=== PATIENT | male | born 1960 | race Caucasian/White ===

== ENCOUNTER 2021-04-02 05:32 | Inpatient (IN) ==
[2021-04-02] MEDS ORDERED: SODIUM CHLORIDE 0.9% 1000ML 1,000 ML IV ONE (06:06)
[2021-04-02 06:29] LABS: Basophils # (auto) 0.02 K/uL (0-0.2); Basophils % (auto) 0.2 %; Eosinophils % (auto) 2.4 %; Hematocrit (blood only) 39.5 % (42-52); Hemoglobin 13.2 g/dL (14.0-18.0); Immature Granulocytes # (auto) 0.02 K/uL (0.00-0.02); Immature Granulocytes % (auto) 0.2 %; Lymphocytes # (auto) 1.79 K/uL (1.2-3.4); Lymphocytes % (auto) 14.3 %; Mean Corpuscular Hemoglobin 28.8 pg (25-34); Mean Corpuscular Hgb Conc 33.4 g/dL (32-36); Mean Corpuscular Volume 86.2 fL (80-100); Mean Platelet Volume 8.1 fL (7.4-10.4); Monocytes # (auto) 0.54 K/uL (0.11-0.59); Monocytes % (auto) 4.3 %; Neutrophils # (auto) 9.81 K/uL (1.4-6.5); Neutrophils % (auto) 78.6 %; Platelet Count 345 K/uL (130-400); RDW Coefficient of Variation 13.4 % (11.5-14.5); RDW Standard Deviation 42.7 fL (36.4-46.3); Red Blood Count 4.58 M/uL (4.7-6.1); White Blood Count 12.48 K/uL (4.8-10.8)
[2021-04-02 06:45] LABS: Albumin Level 3.3 gm/dl (3.4-5.0); BUN Creatinine Ratio 30.2 (10-20); Calcium 9.4 mg/dl (8.5-10.1); Creatinine Clr Calc Pharmacy 98.5 ml/min; Est GFR (African American) 108.7 ml/min; Est GFR (Non-African American) 93.8 ml/min; Magnesium 2.3 mg/dl (1.8-2.4); Potassium 4.5 mmol/L (3.5-5.1)
[2021-04-02 06:47] LABS: Albumin Globulin Ratio 0.9 (0.9-2); Bilirubin,Total 0.2 mg/dl (0.2-1); Globulin 3.6 gm/dl (2.5-4.0); Total Protein 6.9 gm/dl (6.4-8.2)
--- NOTE | 2021-04-02 06:53 | Emergency Department Note ---
History of Present Illness General Chief complaint: Rectal Bleed Stated complaint: RECTAL BLEEDING Time Seen by Provider: 04/02/21 05:51 Source: patient Mode of arrival: ambulatory Limitations: no limitations History of Present Illness Provider complaint: GI bleed Onset (ago): hour(s) Associated symptoms: + denies other symptoms Treatments prior to arrival: none This is a 60-year-old male presents emergency department complaining of GI bleed . Patient states early this morning he woke up had something to eat and drink and went to the bathroom. He states about a half an hour later when he woke up he felt he had gas and went to use the restroom and states he passed a blood clot and then had bright red blood on the toilet tissue. He states he sat for a while and then felt as though he needed to use the bathroom again after about an hour. At this point he had bright red watery diarrhea. He then sat around at home, smoked a cigarette, and contacted the advice nurse. He then had yet a third episode of bright red watery diarrhea. He denies any abdominal pain or bloating. Denies nausea, vomiting, fevers, chills. Patient states he has previously had an episode of diverticulitis. He has never had prior bleeding. Patient has not had a screening colonoscopy. Denies any family history of GI problems. No recent increased heartburn. Pt uses meloxicam daily for arthritis and uses ASA 81 mg. No anticoagulation. Pt seen during a time of high acuity and national emergency pandemic while wearing PPE. Home Medications Medication Instructions Recorded Confirmed Type aspirin 81 mg tablet,delayed 81 mg PO DAILY 02/08/20 04/02/21 History release meloxicam 15 mg tablet 7.5 - 15 mg PO DAILY 02/08/20 04/02/21 History nortriptyline 10 mg capsule 10 mg PO HS 04/02/21 04/02/21 History omeprazole 20 mg capsule,delayed 20 mg PO DAILY PRN 04/02/21 04/02/21 History release Allergies Allergy/AdvReac Type Severity Reaction Status Date / Time No Known Allergies Allergy Unverified 04/02/21 07:38 Past Med/Surg History Medical History KAILASH (generalized anxiety disorder) Generalized osteoarthritis Hepatitis B carrier No pertinent past medical history Tobacco use disorder Surgical History Hx of cataract surgery Hx of inguinal hernia surgery Family History Grandfather Lung cancer Grandmother (Maternal) Diabetes Social History (Updated 04/02/21 @ 10:57 by Madina Wooten PA-C) Smoking Status: Current every day smoker Tobacco Type: Cigarettes and Pipe packs per day: 1.5; Years Smoked: 5; Cigarettes Per Day: 30; Second Hand Exposure: No; Do You Dip or Chew Tobacco: No; Tobacco Cessation Education Requested by Patient: No Hx Alcohol Use: Yes Alcohol type: hard liquor Hx Substance Use: Yes Prescribed Medications: Marijuana Non-Prescribed Medications Comment: uses marijuana to sleep 2-3 nights a week Last Used Substance: Days (ago) Last Used Substance Other:: 1 Preferred Language: Turkish Communication Ability: Effective Parcel Carrier Required: Yes Beliefs That Will Affect Care: None Current Living Situation: Significant Other Other Information That Helps Us Care for You: No Feels Safe at Home: Yes Safety Concerns: Feels Safe At This Time Assistive Devices: None Review of Systems A total of 10 systems reviewed and were otherwise negative All systems reviewed & are unremarkable except as noted in HPI & below Physical Exam Vital Signs Vital Signs - 24 hr 04/02/21 05:41 04/02/21 08:00 Temperature 36.7 C Temperature Source Temporal Artery Scan Pulse Rate 84 Pulse Rate [Right Finger] 74 Respiratory Rate 20 18 Respiratory Effort / Characteristics Non-Labored Respiratory Depth Normal Respiratory Pattern Regular Blood Pressure 134/91 Blood Pressure [Right Arm] 124/70 Blood Pressure Mean 105 Blood Pressure Mean [Right Arm] 88 Pulse Oximetry 97 97 Oxygen Delivery Method Room Air Room Air Sepsis Recent Fever Within 48 Hours No Sepsis New/Unexplained Change in Mental Status N/A Sepsis Action Taken by Nursing No Action Required GENERAL: alert, well appearing, well nourished, no distress, non-toxic EYE EXAM: normal conjunctiva, PERRL and EOM's grossly intact OROPHARYNX: no exudate, no erythema, lips, buccal mucosa, and tongue normal and mucous membranes are moist NECK: supple, no nuchal rigidity, no adenopathy, non-tender LUNGS: Clear to auscultation. Normal chest wall mechanics, no w/r/r HEART: no murmurs, S1 normal and S2 normal ABDOMEN: abdomen soft, non-tender, normo-active bowel sounds, no masses, no rebound or guarding. BACK: Back is symmetrical on inspection and there is no deformity, no midline tenderness, no CVA tenderness. SKIN: no rashes and no bruising UPPER EXTREMITIES: upper extremities are grossly normal. FROM, nml pulses b/l. LOWER EXTREMITIES: No pitting edema. FROM, nml pulses b/l. NEURO EXAM: Normal sensorium, cranial nerves II-XII grossly intact, normal speech, no gross weakness of arms, no gross weakness of legs. Gross sensation intact. Course Course 15: Pt with recurrent bloody diarrhea here. VS stable. I visualized the bowel movement which was grossly bloody with some clots. 0830: Discussed with Dr. Hernandez. 0848: DIscussed with Dr. Olvera. Administered Medications Sodium Chloride (Nss 1000ml) 1,000 mls @ 125 mls/hr IV .Q8H FIDEL Stop: 05/02/21 14:59 Last Admin: 04/02/21 22:11 Dose: 125 mls/hr Documented by: [id number] Infusion: 04/02/21 22:11 Dose: 125 mls/hr Documented by: [id number] Admin: 04/02/21 15:00 Dose: 125 mls/hr Documented by: [id number] Ciprofloxacin (Cipro / D5w) 400 mg in 200 mls @ 100 mls/hr IV Q12H FIDEL; Protocol Stop: 04/12/21 19:59 Last Infusion: 04/02/21 21:38 Dose: 0 mls/hr Documented by: [id number] Admin: 04/02/21 19:37 Dose: 100 mls/hr Documented by: [id number] Metronidazole (Flagyl) 500 mg in 100 mls @ 100 mls/hr IV Q8H FIDEL; Protocol Stop: 04/12/21 16:29 Last Infusion: 04/02/21 17:21 Dose: 0 mls/hr Documented by: [id number] Admin: 04/02/21 16:09 Dose: 100 mls/hr Documented by: [id number] Nortriptyline HCl (Nortriptyline Hcl 10 Mg Cap) 10 mg PO HS FIDEL Stop: 05/02/21 20:59 Last Admin: 04/02/21 20:16 Dose: 10 mg Documented by: [id number] Discontinued Medications Sodium Chloride (Nss 1000ml) 1,000 mls @ 999 mls/hr IV .Q1H1M ONE Stop: 04/02/21 07:06 Last Infusion: 04/02/21 07:31 Dose: 0 mls/hr Documented by: [id number] Admin: 04/02/21 06:30 Dose: 999 mls/hr Documented by: [id number] Sodium Chloride (Nss 1000ml) 1,000 mls @ 125 mls/hr IV .Q8H FIDEL Stop: 05/02/21 08:29 Last Infusion: 04/02/21 14:31 Dose: 0 mls/hr Documented by: [id number] Admin: 04/02/21 09:00 Dose: 125 mls/hr Documented by: [id number] Ciprofloxacin (Cipro / D5w) 400 mg in 200 mls @ 100 mls/hr IV NOW STA; Protocol Stop: 04/02/21 10:35 Last Infusion: 04/02/21 11:15 Dose: 0 mls/hr Documented by: [id number] Admin: 04/02/21 09:00 Dose: 100 mls/hr Documented by: [id number] Metronidazole (Flagyl) 500 mg in 100 mls @ 100 mls/hr IV NOW STA Stop: 04/02/21 09:35 Last Infusion: 04/02/21 10:15 Dose: 0 mls/hr Documented by: [id number] Admin: 04/02/21 09:00 Dose: 100 mls/hr Documented by: [id number] Medical Decision Making Differential Diagnosis Differential diagnosis includes etiologies such as diverticulosis, AVM, coagulopathy, colitis, inflammatory bowel disease, malignancy, Tanesha-Moran tear, esophagitis, peptic ulcer disease, variceal bleed, gastritis, epistaxis, fissure, hemorrhoids, as well as others were entertained. Medical Records Attestation: I reviewed the patient's medical records. Home Medications Current Medication List: was personally reviewed by me Laboratory Data Attestation: I reviewed the patient's lab results. Result diagrams: 04/02/21 17:58 04/02/21 06:14 Lab Results 04/02/21 04/02/21 04/02/21 Range/Units 06:14 06:14 06:14 WBC 12.48 H (4.8-10.8) K/uL RBC 4.58 L (4.7-6.1) M/uL Hgb 13.2 L (14.0-18.0) g/dL Hct 39.5 L (42-52) % MCV 86.2 (80-100) fL MCH 28.8 (25-34) pg MCHC 33.4 (32-36) g/dL RDW Std Deviation 42.7 (36.4-46.3) fL RDW Coeff of Reji 13.4 (11.5-14.5) % Plt Count 345 (130-400) K/uL MPV 8.1 (7.4-10.4) fL Immature Gran % (Auto) 0.2 % Neut % (Auto) 78.6 % Lymph % (Auto) 14.3 % [place] % (Auto) 4.3 % Eos % (Auto) 2.4 % Baso % (Auto) 0.2 % Neut # (Auto) 9.81 H (1.4-6.5) K/uL Lymph # (Auto) 1.79 (1.2-3.4) K/uL [place] # (Auto) 0.54 (0.11-0.59) K/uL Eos # (Auto) 0.30 (0-0.5) K/uL Baso # (Auto) 0.02 (0-0.2) K/uL Immature Gran # (Auto) 0.02 (0.00-0.02) K/uL Sodium 140 (136-145) mmol/L Potassium 4.5 (3.5-5.1) mmol/L Chloride 111 H (98-107) mmol/L Carbon Dioxide 25 (21-32) mmol/L Anion Gap 4.0 (3-11) BUN 26 H (7-18) mg/dl Creatinine 0.87 (0.6-1.4) mg/dl Est Cr Clr Drug Dosing 98.5 ml/min Est GFR ( Amer) 108.7 ml/min Est GFR (Non-Af Amer) 93.8 ml/min BUN/Creatinine Ratio 30.2 H (10-20) Glucose 148 H (70-99) mg/dl Lactate 1.2 (0.4-2.0) mmol/L Calcium 9.4 (8.5-10.1) mg/dl Magnesium 2.3 (1.8-2.4) mg/dl Total Bilirubin 0.2 (0.2-1) mg/dl AST 20 (15-37) U/L ALT 23 (12-78) U/L Alkaline Phosphatase 113 (45-117) U/L Total Protein 6.9 (6.4-8.2) gm/dl Albumin 3.3 L (3.4-5.0) gm/dl Globulin 3.6 (2.5-4.0) gm/dl Albumin/Globulin Ratio 0.9 (0.9-2) Urine Color Urine Appearance (Clear) Urine pH (4.5-7.5) Ur Specific [place] (1.000-1.030) Urine Protein (Negative) Urine Glucose (UA) (Negative) Urine Ketones (Negative) Urine Blood (Negative) Urine Nitrite (Negative) Urine Bilirubin (Negative) Urine Urobilinogen (Negative) Ur Leukocyte Esterase (Negative) Lyme Disease IgG Ab (Negative) Lyme Disease IgM Ab (Negative) COVID-19 Eval Order SARS-CoV-2 (PCR) (Negative) Blood Type Antibody Screen Crossmatch 04/02/21 04/02/21 04/02/21 Range/Units 06:14 08:37 08:58 WBC (4.8-10.8) K/uL RBC (4.7-6.1) M/uL Hgb (14.0-18.0) g/dL Hct (42-52) % MCV (80-100) fL MCH (25-34) pg MCHC (32-36) g/dL RDW Std Deviation (36.4-46.3) fL RDW Coeff of Reji (11.5-14.5) % Plt Count (130-400) K/uL MPV (7.4-10.4) fL Immature Gran % (Auto) % Neut % (Auto) % Lymph % (Auto) % [place] % (Auto) % Eos % (Auto) % Baso % (Auto) % Neut # (Auto) (1.4-6.5) K/uL Lymph # (Auto) (1.2-3.4) K/uL [place] # (Auto) (0.11-0.59) K/uL Eos # (Auto) (0-0.5) K/uL Baso # (Auto) (0-0.2) K/uL Immature Gran # (Auto) (0.00-0.02) K/uL Sodium (136-145) mmol/L Potassium (3.5-5.1) mmol/L Chloride (98-107) mmol/L Carbon Dioxide (21-32) mmol/L Anion Gap (3-11) BUN (7-18) mg/dl Creatinine (0.6-1.4) mg/dl Est Cr Clr Drug Dosing ml/min Est GFR ( Amer) ml/min Est GFR (Non-Af Amer) ml/min BUN/Creatinine Ratio (10-20) Glucose (70-99) mg/dl Lactate (0.4-2.0) mmol/L Calcium (8.5-10.1) mg/dl Magnesium (1.8-2.4) mg/dl Total Bilirubin (0.2-1) mg/dl AST (15-37) U/L ALT (12-78) U/L Alkaline Phosphatase (45-117) U/L Total Protein (6.4-8.2) gm/dl Albumin (3.4-5.0) gm/dl Globulin (2.5-4.0) gm/dl Albumin/Globulin Ratio (0.9-2) Urine Color Yellow Urine Appearance Clear (Clear) Urine pH 7.0 (4.5-7.5) Ur Specific [place] > 1.045 H (1.000-1.030) Urine Protein Negative (Negative) Urine Glucose (UA) Negative (Negative) Urine Ketones Negative (Negative) Urine Blood Negative (Negative) Urine Nitrite Negative (Negative) Urine Bilirubin Negative (Negative) Urine Urobilinogen Negative (Negative) Ur Leukocyte Esterase Negative (Negative) Lyme Disease IgG Ab Negative (Negative) Lyme Disease IgM Ab Negative (Negative) COVID-19 Eval Order SARS-CoV-2 (PCR) (Negative) Blood Type O Positive Antibody Screen NEGATIVE Crossmatch See Detail 04/02/21 04/02/21 Range/Units 09:20 09:20 WBC (4.8-10.8) K/uL RBC (4.7-6.1) M/uL Hgb (14.0-18.0) g/dL Hct (42-52) % MCV (80-100) fL MCH (25-34) pg MCHC (32-36) g/dL RDW Std Deviation (36.4-46.3) fL RDW Coeff of Reji (11.5-14.5) % Plt Count (130-400) K/uL MPV (7.4-10.4) fL Immature Gran % (Auto) % Neut % (Auto) % Lymph % (Auto) % [place] % (Auto) % Eos % (Auto) % Baso % (Auto) % Neut # (Auto) (1.4-6.5) K/uL Lymph # (Auto) (1.2-3.4) K/uL [place] # (Auto) (0.11-0.59) K/uL Eos # (Auto) (0-0.5) K/uL Baso # (Auto) (0-0.2) K/uL Immature Gran # (Auto) (0.00-0.02) K/uL Sodium (136-145) mmol/L Potassium (3.5-5.1) mmol/L Chloride (98-107) mmol/L Carbon Dioxide (21-32) mmol/L Anion Gap (3-11) BUN (7-18) mg/dl Creatinine (0.6-1.4) mg/dl Est Cr Clr Drug Dosing ml/min Est GFR ( Amer) ml/min Est GFR (Non-Af Amer) ml/min BUN/Creatinine Ratio (10-20) Glucose (70-99) mg/dl Lactate (0.4-2.0) mmol/L Calcium (8.5-10.1) mg/dl Magnesium (1.8-2.4) mg/dl Total Bilirubin (0.2-1) mg/dl AST (15-37) U/L ALT (12-78) U/L Alkaline Phosphatase (45-117) U/L Total Protein (6.4-8.2) gm/dl Albumin (3.4-5.0) gm/dl Globulin (2.5-4.0) gm/dl Albumin/Globulin Ratio (0.9-2) Urine Color Urine Appearance (Clear) Urine pH (4.5-7.5) Ur Specific [place] (1.000-1.030) Urine Protein (Negative) Urine Glucose (UA) (Negative) Urine Ketones (Negative) Urine Blood (Negative) Urine Nitrite (Negative) Urine Bilirubin (Negative) Urine Urobilinogen (Negative) Ur Leukocyte Esterase (Negative) Lyme Disease IgG Ab (Negative) Lyme Disease IgM Ab (Negative) COVID-19 Eval Order Covid19 at [facility] SARS-CoV-2 (PCR) NEGATIVE (Negative) Blood Type Antibody Screen Crossmatch Imaging Data Radiologist's Impression: Abdomen/Pelvis CT 04/02/21 06:[address] WITH IV CONTRAST CT DOSE: 518.52 mGy.cm HISTORY: Acute GI bleed gi bleed TECHNIQUE: Multiaxial CT images of the abdomen and pelvis were performed foll owing the IV administration of 94 cc of Optiray, A dose lowering technique was utilized adhering to the principles of ALARA. COMPARISON STUDY: CT abdomen and pelvis 02/08/2020 FINDINGS: The imaged inferior cardiac chambers are unremarkable. Mild bibasilar atelectasis/fibrosis. No pneumatosis or pneumoperitoneum. The spleen, pancreas, adrenal glands, gallbladder and liver appear unremarkable. Patency of the hepatic and portal veins. Unremarkable right kidney. Unchanged appearance of the inferior pole cortex of the left kidney which may reflect a small area of cortical scarring. No hydronephrosis. Urinary bladder wall thickening with partial distention. Prostamegaly. Probable small fat filled left inguinal hernia. Atherosclerosis of the aorta without aneurysm. No adenopathy. Left-sided IVC. Tiny hiatal hernia. No bowel obstruction. Colonic diverticulosis. Mild wall thickening of the mid to distal descending colon and proximal sigmoid with mild pericolonic stranding. There is ill-defined intraluminal hyperdensity within the mid aspect of the descending colon on image 210 series 3 extending for a length of approximately 2.5 cm. Normal appendix. Postoperative changes of the abdominal wall with surgical clips. Tiny fat filled periumbilical hernia. Unremarkable soft tissues. No acute fracture. IMPRESSION: 1. Mild wall thickening of the mid to distal descending and proximal sigmoid colon with pericolonic stranding is suggestive of a nonspecific acute colitis. Acute diverticulitis considered less likely. 2. Ill-defined intraluminal hyperdensity extending for a length of 2.5 cm in the mid descending colon is suggestive of an acute gastrointestinal hemorrhage with active extravasation. GI consultation recommended. 3. Additional findings as above. ACT 112: Negative or not required by law. The above report was generated using voice recognition software. It may contain grammatical, syntax or spelling errors. Electronically signed by: Adarsh Lawrence M.D. 04/02/2021 8:17 AM ECG Data Attestation: I personally reviewed and interpreted this ECG as follows: Indication: + other Rate (beats per minute): 74 Rhythm: + normal sinus ECG Intervals/blocks: + Normal QRS and + Normal QT ECG [place]: + Normal ECG ST segments: + Normal ST segments MDM Narrative This is a 60-year-old man who presents due to concern for GI bleed that began overnight tonight. Patient was afebrile and hemodynamically stable. Patient denied any accompanying abdominal pain. Patient denies any prior GI history in him or family members. Of note patient has not had any screening colonoscopy, is a smoker, does use low-dose aspirin daily as well as additional meloxicam for arthritis pain. Patient denies any recent GERD, nausea, or melena. Patient stated bleeding tonight had been bright red, he did have 2 episodes here which I did visualize myself at bedside which were grossly bloody. Patient otherwise continued to be well-appearing. I do not suspect brisk upper GI bleed at this time. Case discussed with GI on-call after CT of the abdomen pelvis showed colitis as well as active extravasation. Given his stability, GI was comfortable with the patient being started on IV antibiotics here and close monitoring. Type and screen was added in addition of the Covid swab. Case discussed with Dr. Jean, [facility] hospitalist. An order was placed for continuous cardiac monitoring. The monitor shows a rate of _70_ with _normal sinus_ rhythm. Impression & Plan Acute GI bleeding, Acute colitis, Tobacco use disorder Discharge Plan Visit Data Chief Complaint: Rectal Bleed Stated Complaint: RECTAL BLEEDING ED Provider: Porsche Foley Discharge Problem: Acute GI bleeding, Acute colitis, Tobacco use disorder Patient Disposition: Admitted As Inpatient Discharge Instructions Interventions: ED Discharge Assessment Last Done: 04/02/21 13:37
[2021-04-02 07:25] LABS: Lyme Ab IgG w/WB Rflx Negative (Negative); Lyme Ab IgM w/WB Rflx Negative (Negative)
--- NOTE | 2021-04-02 08:18 | CT Scan Report ---
ABDOMEN AND PELVIS CT WITH IV CONTRAST CT DOSE: 518.52 mGy.cm HISTORY: Acute GI bleed gi bleed TECHNIQUE: Multiaxial CT images of the abdomen and pelvis were performed following the IV administrat ion of 94 cc of Optiray, A dose lowering technique was utilized adhering to the principles of ALARA. COMPARISON STUDY: CT abdomen and pelvis 02/08/2020 FINDINGS: The imaged inferior cardiac chambers are unremarkable. Mild bibasilar atelectasis/fibrosis. No pneumatosis or pneumoperitoneum. The spleen, pancreas, adrenal glands, gallbladder and liver appe ar unremarkable. Patency of the hepatic and portal veins. Unremarkable right kidney. Unchanged appear ance of the inferior pole cortex of the left kidney which may reflect a small area of cortical scarri ng. No hydronephrosis. Urinary bladder wall thickening with partial distention. Prostamegaly. Probabl e small fat filled left inguinal hernia. Atherosclerosis of the aorta without aneurysm. No adenopathy . Left-sided IVC. Tiny hiatal hernia. No bowel obstruction. Colonic diverticulosis. Mild wall thickening of the mid to distal descending colon and proximal sigmoid with mild pericolonic stranding. There is ill-defined in traluminal hyperdensity within the mid aspect of the descending colon on image 210 series 3 extending for a length of approximately 2.5 cm. Normal appendix. Postoperative changes of the abdominal wall w ith surgical clips. Tiny fat filled periumbilical hernia. Unremarkable soft tissues. No acute fractur e. IMPRESSION: 1. Mild wall thickening of the mid to distal descending and proximal sigmoid colon with pericolonic s tranding is suggestive of a nonspecific acute colitis. Acute diverticulitis considered less likely. 2. Ill-defined intraluminal hyperdensity extending for a length of 2.5 cm in the mid descending colon is suggestive of an acute gastrointestinal hemorrhage with active extravasation. GI consultation rec ommended. 3. Additional findings as above. ACT 112: Negative or not required by law. The above report was generated using voice recognition software. It may contain grammatical, syntax o r spelling errors. Electronically signed by: Adarsh Lawrence M.D. 04/02/2021 8:17 AM
[2021-04-02] MEDS ORDERED: SODIUM CHLORIDE 0.9% 1000ML 1,000 ML IV SCH (08:30)
[2021-04-02] MEDS ORDERED: metroNIDAZOLE 500 MG/100 ML BAG IV STA (08:36)
[2021-04-02] MEDS ORDERED: CIPROFLOXACIN / D5W 400 MG/200 ML BAG IV STA (08:36)
[2021-04-02 08:54] LABS: Appearance Urine Clear (Clear); Bilirubin Urine Negative (Negative); Blood Urine Negative (Negative); Color Urine Yellow; Glucose Urine UA Negative (Negative); Ketones Urine Negative (Negative); Leukocyte Esterase Urine Negative (Negative); Nitrite Urine Negative (Negative); Protein Urine Negative (Negative); Specific Gravity Urine > 1.045 (1.000-1.030); Urobilinogen Urine Negative (Negative)
--- NOTE | 2021-04-02 10:17 | History & Physical Report ---
Date of Service April 02, 2021 Assessment & Plan (1) Acute colitis: (2) Gastrointestinal bleeding, lower: (3) Anemia: (4) KAILASH (generalized anxiety disorder): (5) Generalized osteoarthritis: (6) Tobacco use disorder: Plan: This is a 60-year-old male who has significant past medical history of hepatitis B carrier, GERD, generalized arthritis, tobacco abuse, KAILASH, marijuana use who presents to ED secondary to bright red blood per rectum x7 episodes. CT a/p: IMPRESSION:1. Mild wall thickening of the mid to distal descending and proximal sigmoid colon with pericolonic stranding is suggestive of a nonspecific acute colitis. Acute diverticulitis considered less likely. 2. Ill-defined intraluminal hyperdensity extending for a length of 2.5 cm in the mid descending colon is suggestive of an acute gastrointestinal hemorrhage with active extravasation. GI consultation recommended. Hgb 13.2, decreased from 14.5 1 year ago Hemodynamically stable Acute colitis Gastrointestinal bleeding, lower Admit to med telemetry IV antibiotics Cipro and Flagyl Consult GI clear liquid diet for now H&H every 6 hours Type and cross with 1 unit PRBC on hold IVF 125 cc/h no prior hx of colitis (hx of diverticulitis), no hx of c-scope HOLD ASA for now - he is not taking it for CAD, PVD or CVA just preventative Anemia hgb 13.2, acute blood loss monitor q6h Tobacco/Marijuana Use disorder educated on nicotine patch currently wants to hold off will ask if needed KAILASH continue nortriptyline at HS DVT ppx: SCD/TEDS Dispo: med tele PCP: Nona FULL CODE Pt was seen and examined in collaboration with Dr. Olvera, please see addendum History of Present Illness Chief Complaint: Bright red blood per rectum x7 episodes. Primary Care Provider: Darion Castellano MD This is a 60-year-old male who has significant past medical history of hepatitis B carrier, GERD, generalized arthritis, tobacco abuse, KAILASH, marijuana use who presents to ED secondary to bright red blood per rectum x7 episodes. He states he woke up around 1:45 AM with the urge to move his bowels. He passed a large amount of melena and some fecal material. Since early this morning he has now passed 7 large bright red blood clots. Currently there is no fecal material mixed in. His first episode in ED was caught in a hat interview approximately 200 cc of melena. He was in his normal state of health up until early this morning. He denies any nausea, vomiting, abdominal pain, change in appetite, fever, chills, sweats, lightheadedness, dizziness, chest pain, shortness of breath, dysuria, increased urgency or frequency with urination. He has never had anything like this in the past.Of significance he was seen in ED on 01/2020 which did reveal acute diverticulitis. He was treated with appropriate biotics and symptoms resolved. He was encouraged to follow-up with outpatient colonoscopy which he did not receive. He has never had a colonoscopy in the past. He does take a baby aspirin daily and approximately 5 days a week takes meloxicam. He is a contractor. He does smoke marijuana occasionally around 8 PM in the evenings to help him sleep. He does not use any alcohol. In ED patient remained hemodynamically stable. His hemoglobin was stable at 13.2; however, this is decreased from 14.5 approximately [address] scan abdomen pelvis reveals acute colitis, diverticulitis less likely, 2.5 cm mid descending colon acute gastrointestinal hemorrhage with acute extravasation. ED provider did speak with gastroenterology on-call who recommended initiation of IV antibiotics. He was started on IV Cipro Flagyl as well as IV fluid. Allergies Allergy/AdvReac Type Severity Reaction Status Date / Time No Known Allergies Allergy Unverified 04/02/21 07:38 Home Medications Medication Instructions Recorded Confirmed Type nortriptyline 10 mg capsule 10 mg PO HS 04/02/21 04/02/21 History omeprazole 20 mg capsule,delayed 20 mg PO DAILY PRN 04/02/21 04/02/21 History release acetaminophen 325 mg tablet 650 mg PO Q4H PRN #30 tab 04/04/21 Rx Past Med/Surg History Medical History KAILASH (generalized anxiety disorder) Generalized osteoarthritis Hepatitis B carrier No pertinent past medical history Tobacco use disorder Surgical History Hx of cataract surgery Hx of inguinal hernia surgery Family History Grandfather Lung cancer Grandmother (Maternal) Diabetes Social History (Updated 04/02/21 @ 10:57 by Madina Wooten PA-C) Smoking Status: Current every day smoker Tobacco Type: Cigarettes and Pipe packs per day: 1.5; Years Smoked: 5; Cigarettes Per Day: 30; Second Hand Exposure: No; Do You Dip or Chew Tobacco: No; Tobacco Cessation Education Requested by Patient: No Hx Alcohol Use: Yes Alcohol type: hard liquor Hx Substance Use: Yes Prescribed Medications: Marijuana Non-Prescribed Medications Comment: uses marijuana to sleep 2-3 nights a week Last Used Substance: Days (ago) Last Used Substance Other:: 1 Preferred Language: Bengali Communication Ability: Effective Trim Die Maker Required: Yes Beliefs That Will Affect Care: None Current Living Situation: Significant Other Other Information That Helps Us Care for You: No Feels Safe at Home: Yes Safety Concerns: Feels Safe At This Time Assistive Devices: None Review of Systems Review of Systems: All systems reviewed & are unremarkable except as noted in HPI & below Physical Exam Physical Exam: Constitutional: WD/WN, vitals as above, NAD, sitting up in bed, pleasant, conversing easily Head: Normocephalic, Atraumatic Eyes: PERRL, conjunctivae normal, anicteric sclerae ENMT: external ear and nose normal, oropharynx normal Neck: trachea midline, no thyromegaly normal visual inspection Respiratory: normal respiratory effort, lungs clear to auscultation, no wheeze, rales, rhonchi. Normal insp/exp effort, no accessory muscle use Cardiovascular: RRR, no murmur, no edema Vessels: no JVD or carotid bruit Chest: normal inspection of chest Abdomen: normal bowel sounds, soft, nontender, no hepatosplenomegaly Musculoskeletal: no cyanosis or clubbing, extremities motor strength 5/5 Skin: no rashes, warm and dry normal turgor Neurologic: PERRL, EOMI, accommodation nl, no face palsy, no dysarthria CN's II-XI intact bilaterally and moves all extremities Psychiatric: A+Ox3, euthymic affect Lymphatic: no cervical or axillary lymphadenopathy : deferred Results & Data Results & Data ([facility]) Vital Signs (Past 12 Hours) Vital Signs Temp Pulse Pulse Resp BP BP Pulse Ox 04/02/21 08:00 74 18 124/70 97 04/02/21 05:41 36.7 C 84 20 134/91 97 Diagnostic Findings Abdomen/Pelvis CT 04/02/21 06:[address] WITH IV CONTRAST CT DOSE: 518.52 mGy.cm HISTORY: Acute GI bleed gi bleed TECHNIQUE: Multiaxial CT images of the abdomen and pelvis were performed following the IV administration of 94 cc of Optiray, A dose lowering technique was utilized adhering to the principles of ALARA. COMPARISON STUDY: CT abdomen and pelvis 02/08/2020 FINDINGS: The imaged inferior cardiac chambers are unremarkable. Mild bibasilar atelectasis/fibrosis. No pneumatosis or pneumoperitoneum. The spleen, pancreas, adrenal glands, gallbladder and liver appear unremarkable. Patency of the hepatic and portal veins. Unremarkable right kidney. Unchanged appearance of the inferior pole cortex of the left kidney which may reflect a small area of cortical scarring. No hydronephrosis. Urinary bladder wall thickening with partial distention. Prostamegaly. Probable small fat filled left inguinal hernia. Atherosclerosis of the aorta without aneurysm. No adenopathy. Left-sided IVC. Tiny hiatal hernia. No bowel obstruction. Colonic diverticulosis. Mild wall thickening of the mid to distal descending colon and proximal sigmoid with mild pericolonic stranding. There is ill-defined intraluminal hyperdensity within the mid aspect of the descending colon on image 210 series 3 extending for a length of approximately 2.5 cm. Normal appendix. Postoperative changes of the abdominal wall with surgical clips. Tiny fat filled periumbilical hernia. Unremarkable soft tissues. No acute fracture. IMPRESSION: 1. Mild wall thickening of the mid to distal descending and proximal sigmoid colon with pericolonic stranding is suggestive of a nonspecific acute colitis. Acute diverticulitis considered less likely. 2. Ill-defined intraluminal hyperdensity extending for a length of 2.5 cm in the mid descending colon is suggestive of an acute gastrointestinal hemorrhage with active extravasation. GI consultation recommended. 3. Additional findings as above. ACT 112: Negative or not required by law. The above report was generated using voice recognition software. It may contain grammatical, syntax or spelling errors. Electronically signed by: Adarsh Lawrence M.D. 04/02/2021 8:17 AM Medications Administered Medication List Sodium Chloride (Nss 1000ml) 1,000 mls @ 125 mls/hr IV .Q8H FIDEL Stop: 05/02/21 08:29 Last Admin: 04/02/21 09:00 Dose: 125 mls/hr Documented by: [id number] Discontinued Medications Sodium Chloride (Nss 1000ml) 1,000 mls @ 999 mls/hr IV .Q1H1M ONE Stop: 04/02/21 07:06 Last Infusion: 04/02/21 07:31 Dose: 0 mls/hr Documented by: [id number] Admin: 04/02/21 06:30 Dose: 999 mls/hr Documented by: [id number] Ciprofloxacin (Cipro / D5w) 400 mg in 200 mls @ 100 mls/hr IV NOW STA; Protocol Stop: 04/02/21 10:35 Last Admin: 04/02/21 09:00 Dose: 100 mls/hr Documented by: [id number] Metronidazole (Flagyl) 500 mg in 100 mls @ 100 mls/hr IV NOW STA Stop: 04/02/21 09:35 Last Infusion: 04/02/21 10:15 Dose: 0 mls/hr Documented by: [id number] Admin: 04/02/21 09:00 Dose: 100 mls/hr Documented by: [id number] ECG Rate (beats per minute): 74 Rhythm: normal sinus Additional Comments: inferior infarct present COVID-19 Results Results COVID-19 Adm Lab Results: RBC 4.21 M/uL (4.7-6.1) L 04/04/21 WBC 9.79 K/uL (4.8-10.8) 04/04/21 Hgb 11.2 g/dL (14.0-18.0) L 04/04/21 Hct 33.6 % (42-52) L 04/04/21 Plt Count 347 K/uL (130-400) 04/04/21 Neutrophils (%) (Auto) 78.6 % 04/02/21 Lymphocytes (%) (Auto) 14.3 % 04/02/21 Monocytes # (Auto) 0.54 K/uL (0.11-0.59) 04/02/21 Eosinophils # (Auto) 0.30 K/uL (0-0.5) 04/02/21 Immature Granulocyte % (Auto) 0.2 % 04/02/21 Neutrophils # (Auto) 9.81 K/uL (1.4-6.5) H 04/02/21 Lymphocytes # (Auto) 1.79 K/uL (1.2-3.4) 04/02/21 Monocytes # (Auto) 0.54 K/uL (0.11-0.59) 04/02/21 Eosinophils # (Auto) 0.30 K/uL (0-0.5) 04/02/21 Basophils # (Auto) 0.02 K/uL (0-0.2) 04/02/21 Immature Granulocyte # (Auto) 0.02 K/uL (0.00-0.02) 04/02/21 Na 139 mmol/L (136-145) 04/04/21 K 3.9 mmol/L (3.5-5.1) 04/04/21 Cl 108 mmol/L (98-107) H 04/04/21 CO2 26 mmol/L (21-32) 04/04/21 Anion Gap 4.0 (3-11) 04/04/21 BUN 8 mg/dl (7-18) 04/04/21 Creatinine 0.84 mg/dl (0.6-1.4) 04/04/21 BUN/Creatinine Ratio 9.5 (10-20) L 04/04/21 Glucose Level 105 mg/dl (70-99) H 04/04/21 Ca 9.1 mg/dl (8.5-10.1) 04/04/21 Total Bilirubin 0.2 mg/dl (0.2-1) 04/02/21 AST/SGOT 20 U/L (15-37) 04/02/21 ALT/SGPT 23 U/L (12-78) 04/02/21 Alkaline Phosphatase 113 U/L (45-117) 04/02/21 Total Protein 6.9 gm/dl (6.4-8.2) 04/02/21 Albumin 3.3 gm/dl (3.4-5.0) L 04/02/21 Globulin 3.6 gm/dl (2.5-4.0) 04/02/21 Albumin/Globulin Ratio 0.9 (0.9-2) 04/02/21 PTT 26.5 Seconds (21.0-31.0) 04/02/21 INR 1.0 (0.9-1.1) 04/02/21 COVID-19 PCR NEGATIVE (Negative) 04/02/21 Code Status & VTE Plan Code Status Full Code Supervising Physician Co-Signing Physician Notes Pt was seen and examined. Agreed with Madina MANCUSO exam, assessment and plan. 60-year-old male who has significant past medical history of hepatitis B carrier, GERD, generalized arthritis, tobacco abuse, KAILASH, marijuana use who presents to ED secondary to bright red blood per rectum x7 episodes. Pt said that this morning he passed a large amount of melena and some fecal material. He said that he probably had about 7 episodes of diarrhea. Denies any nausea, vomit ing, abdominal pain, change in appetite, fever, chills, sweats, lightheadedness, dizziness, chest pain, shortness of breath, dysuria, increased urgency or frequency with urination. CT abdomen in the ER showed CT scan abdomen pelvis reveals acute colitis, diverticulitis less likely, 2.5 cm mid descending colon acute gastrointestinal hemorrhage with acute extravasation. Hgb on admission 13.2, decreased from 14.5 1 year ago. ED provider did speak with gastroenterology on-call who recommended initiation of IV antibiotics. He was started on IV Cipro Flagyl as well as IV fluid. Will monitor H/H. Continue to hold aspirin and avoid any other Nsaid for now. Will start on clear liquid diet and NPO after midnight. Continue monitor closely. MD Wade
--- NOTE | 2021-04-02 11:58 | Electrocardiogram Report ---
Test Reason : Blood Pressure : / mmHG Vent. Rate : 074 BPM Atrial Rate : 074 BPM P-R Int : 154 ms QRS Dur : 086 ms QT Int : 356 ms P-R-T Axes : 035 -15 015 degrees QTc Int : 395 ms Normal sinus rhythm Normal ECG When compared with ECG of 08-FEB-2020 19:58, No significant change Confirmed by Darion Dias ([id number]) on 04/02/2021 11:58:46 AM Referred By: REFERRED SELF Confirmed By:Darion Dias
[2021-04-02 12:17] LABS: Partial Thromboplastin Time 26.5 Seconds (21.0-31.0); Prothrombin Time 10.2 Seconds (9.0-12.0)
[2021-04-02] MEDS ORDERED: ACETAMINOPHEN 325 MG TAB PO PRN (14:27)
[2021-04-02] MEDS ORDERED: SODIUM CHLORIDE 0.9% 250 ML IV PRN (14:27)
[2021-04-02] MEDS ORDERED: ONDANSETRON INJ 2 MG/ML 2 ML VIAL IV PRN (14:27)
[2021-04-02] MEDS: SODIUM CHLORIDE 0.9% 1000ML 1,000 ML IV SCH ×2 (15:00→22:11)
[2021-04-02 15:33] LABS: Hematocrit (blood only) 32.8 % (42-52); Hemoglobin 10.7 g/dL (14.0-18.0); Mean Corpuscular Hemoglobin 28.4 pg (25-34); Mean Corpuscular Hgb Conc 32.6 g/dL (32-36); Platelet Count 300 K/uL (130-400); RDW Coefficient of Variation 13.5 % (11.5-14.5); RDW Standard Deviation 43.2 fL (36.4-46.3); Red Blood Count 3.77 M/uL (4.7-6.1); White Blood Count 7.68 K/uL (4.8-10.8)
[2021-04-02] MEDS: metroNIDAZOLE 500 MG/100 ML BAG IV SCH (16:09)
--- NOTE | 2021-04-02 16:28 | Gastrointestinal Consultation ---
Date of Consultation April 02, 2021 Supervising Physician Co-Signing Physician Notes Rectal bleeding that seems to have resolved with out hemodynamic instability or significant drop in hgb. Suspect this is from colitis +/- diverticular bleed. If he exhibits signs of hemodynamic instability, consider tagged rbc scan. He appears quite stable this evening and if he remains stable, could consider liquids and advance as tolerated. Completion of abx course for presumed infectious colitis for 10-14 days. Outpatient c-scope in 6-8 weeks. History of Present Illness Reason for Consultation: Rectal bleeding Requesting Physician: Dr. Olvera/Madina Resendez Attending Physician: Nolan Olvera MD History of Present Illness 60 yo male with no known history of colon cancer, never had a prior colonoscopy, admitted thru the ER for concerns for rectal bleeding. Arrived early this morning reporting he had passed a few blood clots he thought, and felt gaseous. Has been eating well he states, no recent abx use. ED physician noted one dark bowel movement in the ER. Admitted to the floor. No hemodnyamic instability since admission. No use of blood thinners. No associated abdominal pain, nausea, vomiting, diarrhea. He report no further bleeding since the er this morning. He feels well overall. Allergies Allergy/AdvReac Type Severity Reaction Status Date / Time No Known Allergies Allergy Unverified 04/02/21 07:38 Home Medications Medication Instructions Recorded Confirmed Type aspirin 81 mg tablet,delayed 81 mg PO DAILY 02/08/20 04/02/21 History release meloxicam 15 mg tablet 7.5 - 15 mg PO DAILY 02/08/20 04/02/21 History nortriptyline 10 mg capsule 10 mg PO HS 04/02/21 04/02/21 History omeprazole 20 mg capsule,delayed 20 mg PO DAILY PRN 04/02/21 04/02/21 History release Patient History Medical History KAILASH (generalized anxiety disorder) Generalized osteoarthritis Hepatitis B carrier No pertinent past medical history Tobacco use disorder Surgical History Hx of cataract surgery Hx of inguinal hernia surgery Family History Grandfather Lung cancer Grandmother (Maternal) Diabetes Social History (Updated 04/02/21 @ 10:57 by Madina Wooten PA-C) Smoking Status: Current every day smoker Tobacco Type: Cigarettes and Pipe packs per day: 1.5; Years Smoked: 5; Cigarettes Per Day: 30; Second Hand Exposure: No; Do You Dip or Chew Tobacco: No; Tobacco Cessation Education Requested by Patient: No Hx Alcohol Use: Yes Alcohol type: hard liquor Hx Substance Use: Yes Prescribed Medications: Marijuana Non-Prescribed Medications Comment: uses marijuana to sleep 2-3 nights a week Last Used Substance: Days (ago) Last Used Substance Other:: 1 Preferred Language: French Communication Ability: Effective Tire Stripper Required: Yes Beliefs That Will Affect Care: None Current Living Situation: Significant Other Other Information That Helps Us Care for You: No Feels Safe at Home: Yes Safety Concerns: Feels Safe At This Time Assistive Devices: Glasses Review of Systems Review of Systems: No active bleeding reported this afternoon Gastrointestinal: No belly pain, no nausea, vomiting, diarrhea Physical Exam Physical Exam: Well nourished male in nad Eyes: PERRLA Gastrointestinal (Abdomen): normal bowel sounds, soft, nontender, no hepatosplenomegaly Results & Data ([facility]) Vital Signs (Past 12 Hours) Vital Signs Temp Pulse Pulse Resp BP BP Pulse Ox 04/02/21 15:23 36.6 C 64 16 121/73 96 04/02/21 15:00 70 04/02/21 14:42 36.8 C 73 18 160/76 H 97 04/02/21 14:17 70 04/02/21 12:00 73 18 112/70 97 04/02/21 10:00 74 18 124/70 97 04/02/21 08:00 74 18 124/70 97 04/02/21 05:41 36.7 C 84 20 134/91 97 Laboratory Results Stable hgb No bun rise Diagnostic Findings CT findings with descending colitis, ? fluid collection - possible gi bleed in descending colon area
[2021-04-02 18:13] LABS: Hemoglobin 10.5 g/dL (14.0-18.0)
[2021-04-02] MEDS: CIPROFLOXACIN / D5W 400 MG/200 ML BAG IV SCH (19:37)
[2021-04-02] MEDS: NORTRIPTYLINE HCL 10 MG CAP PO SCH (20:16)
[2021-04-03 00:29] LABS: Hematocrit (blood only) 32.6 % (42-52); Hemoglobin 10.9 g/dL (14.0-18.0)
[2021-04-03] MEDS: metroNIDAZOLE 500 MG/100 ML BAG IV SCH ×4 (00:33→23:59)
[2021-04-03 06:41] LABS: Hematocrit (blood only) 31.3 % (42-52); Hemoglobin 10.4 g/dL (14.0-18.0); Mean Corpuscular Hemoglobin 28.2 pg (25-34); Mean Corpuscular Hgb Conc 33.2 g/dL (32-36); Mean Corpuscular Volume 84.8 fL (80-100); Platelet Count 268 K/uL (130-400); RDW Coefficient of Variation 13.3 % (11.5-14.5); Red Blood Count 3.69 M/uL (4.7-6.1); White Blood Count 8.21 K/uL (4.8-10.8)
[2021-04-03] MEDS: SODIUM CHLORIDE 0.9% 1000ML 1,000 ML IV SCH ×3 (07:04→20:04)
[2021-04-03 07:22] LABS: BUN Creatinine Ratio 18.6 (10-20); Calcium 8.3 mg/dl (8.5-10.1); Creatinine Clr Calc Pharmacy 133.9 ml/min; Est GFR (African American) 122.6 ml/min; Est GFR (Non-African American) 105.7 ml/min; Potassium 4.3 mmol/L (3.5-5.1)
[2021-04-03] MEDS: CIPROFLOXACIN / D5W 400 MG/200 ML BAG IV SCH ×2 (08:36→19:39)
--- NOTE | 2021-04-03 13:20 | Gastroenterology Progress Note ---
Date of Service April 03, 2021 Assessment & Plan (1) Gastrointestinal bleeding, lower: (2) Anemia: (3) Acute colitis: Admission and Anticipated Discharge Date Admission Date: April 02, 2021 Supervising Physician Co-Signing Physician Notes Admitted for rectal bleeding but without any rectal bleeding since admission. Stable hgb and hemodnyamics. CT evidence of descending colitis on abx. Also with ? focal area of bleeding in descending colon- presumably this is from a diverticula. He has had no active bleeding since being on the floor. Would complete course of abx, advance diet as tolerated, outpt c-scope in 6-8 weeks. Subjective No acute complaints Hasn't had a bm No rectal bleeding noted No reports of fevers, chills, pain to me this afternoon or nausea/vomiting Tolerated liquids this am Physical Exam Physical Exam: Well nourished male in nad Gastrointestinal (Abdomen): normal bowel sounds, soft, nontender, no hepatosplenomegaly Results & Data ([facility]) Vital Signs (Past 12 Hours) Vital Signs Temp Pulse Pulse Resp BP Pulse Ox 04/03/21 07:59 61 04/03/21 07:35 36.5 C 71 18 138/82 93 04/03/21 03:11 36.6 C 69 16 100/60 94 Laboratory Results Labs essentially stable
--- NOTE | 2021-04-03 15:24 | Hospitalist Progress Note ---
Date of Service April 03, 2021 Assessment & Plan (1) Acute colitis: (2) Gastrointestinal bleeding, lower: (3) Anemia: (4) KAILASH (generalized anxiety disorder): (5) Generalized osteoarthritis: (6) Tobacco use disorder: Plan: This is a 60-year-old male who has significant past medical history of hepatitis B carrier, GERD, generalized arthritis, tobacco abuse, KAILASH, marijuana use who presents to ED secondary to bright red blood per rectum x7 episodes. CT a/p: IMPRESSION:1. Mild wall thickening of the mid to distal descending and proximal sigmoid colon with pericolonic stranding is suggestive of a nonspecific acute colitis. Acute diverticulitis considered less likely. 2. Ill-defined intraluminal hyperdensity extending for a length of 2.5 cm in the mid descending colon is suggestive of an acute gastrointestinal hemorrhage with active extravasation. GI consultation recommended. Hgb 13.2, decreased from 14.5 1 year ago Hemodynamically stable Acute colitis Gastrointestinal bleeding, lower CT abd/pelvis showed Mild wall thickening of the mid to distal descending and proximal sigmoid colon with pericolonic stranding is suggestive of a nonspecific acute colitis. Ill-defined intraluminal hyperdensity extending for a length of 2.5 cm in the mid descending colon is suggestive of an acute gastrointestinal hemorrhage with active extravasation. Hemoglobin on admission 13.2, dropped to 10.4 today Gastro on board Recommend to Completion of abx course for presumed infectious colitis for 10-14 days. Continue to hold NSAID such as aspirin and meloxicam Continue clear liquid diet and advance as tolerated Will need outpatient colonoscopy in 6 to 8 weeks Continue monitor H&H daily Clinically improved Anemia Anemia of acute blood loss Hemoglobin 10.4 today Continue monitor H&H if drop below 8 we will transfuse PRBC Blood transfusion consent signed Tobacco/Marijuana Use disorder Declined nicotine patch Counseling on tobacco and illicit substance abuse KAILASH continue nortriptyline at HS DVT ppx: SCD/TEDS due to GI bleed Dispo: med tele PCP: Nona FULL CODE Admission and Anticipated Discharge Date Admission Date: April 02, 2021 Subjective Patient was seen and examined for follow-up of GI bleed Lying in bed with no acute distress Patient said that his last 2 bowel movement did not have any blood He has not had a bowel movement yet this morning Denies any chest pain, palpitation, dizziness, shortness of breath. Physical Exam Physical Exam: General- No acute distress Head- atraumatic Eyes- PERRL, EOMI, ENT- oropharynx clear Neck- supple, no JVD Lungs- clear to auscultation Heart- regular rhythm; no murmur Abdomen- normal bowel sounds, soft, nontender Extremities- no calf tenderness Neuro- alert, oriented x 3; PERRL, EOMI; no facial palsy; no dysarthria Skin- warm & dry Results & Data Results & Data ([facility]) Vital Signs (Past 12 Hours) Vital Signs Temp Pulse Pulse Resp BP Pulse Ox 04/03/21 07:59 61 04/03/21 07:35 36.5 C 71 18 138/82 93
[2021-04-03 16:28] LABS: Estimated Average Glucose 137 mg/dl; Hemoglobin A1C 6.4 % (4.5-5.6)
[2021-04-03] MEDS: NORTRIPTYLINE HCL 10 MG CAP PO SCH (20:04)
[2021-04-04] MEDS: metroNIDAZOLE 500 MG/100 ML BAG IV SCH (08:08)
[2021-04-04 08:15] LABS: Hemoglobin 11.9 g/dL (14.0-18.0); Mean Corpuscular Hemoglobin 28.3 pg (25-34); Mean Corpuscular Hgb Conc 33.1 g/dL (32-36); Mean Corpuscular Volume 85.5 fL (80-100); Mean Platelet Volume 8.1 fL (7.4-10.4); Platelet Count 347 K/uL (130-400); RDW Coefficient of Variation 13.3 % (11.5-14.5); RDW Standard Deviation 41.4 fL (36.4-46.3); Red Blood Count 4.21 M/uL (4.7-6.1); White Blood Count 9.79 K/uL (4.8-10.8)
[2021-04-04 08:34] LABS: BUN Creatinine Ratio 9.5 (10-20); Calcium 9.1 mg/dl (8.5-10.1); Creatinine Clr Calc Pharmacy 93.5 ml/min; Est GFR (African American) 110.3 ml/min; Est GFR (Non-African American) 95.2 ml/min; Potassium 3.9 mmol/L (3.5-5.1)
[2021-04-04] MEDS: CIPROFLOXACIN / D5W 400 MG/200 ML BAG IV SCH (09:02)
[2021-04-04 14:26] LABS: Hematocrit (blood only) 33.6 % (42-52); Hemoglobin 11.2 g/dL (14.0-18.0)
--- NOTE | 2021-04-04 14:30 | Discharge Summary ---
Date of Service April 04, 2021 Admission HPI Per Admitting Provider This is a 60-year-old male who has significant past medical history of hepatitis B carrier, GERD, generalized arthritis, tobacco abuse, KAILASH, marijuana use who presents to ED secondary to bright red blood per rectum x7 episodes. He states he woke up around 1:45 AM with the urge to move his bowels. He passed a large amount of melena and some fecal material. Since early this morning he has now passed 7 large bright red blood clots. Currently there is no fecal material mixed in. His first episode in ED was caught in a hat interview approximately 200 cc of melena. He was in his normal state of health up until early this morning. He denies any nausea, vomiting, abdominal pain, change in appetite, fever, chills, sweats, lightheadedness, dizziness, chest pain, shortness of breath, dysuria, increased urgency or frequency with urination. He has never had anything like this in the past.Of significance he was seen in ED on 01/2020 which did reveal acute diverticulitis. He was treated with appropriate biotics and symptoms resolved. He was encouraged to follow-up with outpatient colonoscopy which he did not receive. He has never had a colonoscopy in the past. He does take a baby aspirin daily and approximately 5 days a week takes meloxicam. He is a contractor. He does smoke marijuana occasionally around 8 PM in the evenings to help him sleep. He does not use any alcohol. In ED patient remained hemodynamically stable. His hemoglobin was stable at 13.2; however, this is decreased from 14.5 approximately [address] scan abdomen pelvis reveals acute colitis, diverticulitis less likely, 2.5 cm mid descending colon acute gastrointestinal hemorrhage with acute extravasation. ED provider did speak with gastroenterology on-call who recommended initiation of IV antibiotics. He was started on IV Cipro Flagyl as well as IV fluid. Admission Exam Per Admitting Provider Constitutional: WD/WN, vitals as above, NAD, sitting up in bed, pleasant, conversing easily Head: Normocephalic, Atraumatic Eyes: PERRL, conjunctivae normal, anicteric sclerae ENMT: external ear and nose normal, oropharynx normal Neck: trachea midline, no thyromegaly normal visual inspection Respiratory: normal respiratory effort, lungs clear to auscultation, no wheeze, rales, rhonchi. Normal insp/exp effort, no accessory muscle use Cardiovascular: RRR, no murmur, no edema Vessels: no JVD or carotid bruit Chest: normal inspection of chest Abdomen: normal bowel sounds, soft, nontender, no hepatosplenomegaly Musculoskeletal: no cyanosis or clubbing, extremities motor strength 5/5 Skin: no rashes, warm and dry normal turgor Neurologic: PERRL, EOMI, accommodation nl, no face palsy, no dysarthria CN's II-XI intact bilaterally and moves all extremities Psychiatric: A+Ox3, euthymic affect Lymphatic: no cervical or axillary lymphadenopathy : deferred Principal Diagnosis (1) Acute colitis: (2) Gastrointestinal bleeding, lower: (3) Anemia: (4) Generalized osteoarthritis: (5) Tobacco use disorder: Discharge Exam General- No acute distress Head- atraumatic Eyes- PERRL, EOMI, ENT- oropharynx clear Neck- supple, no JVD Lungs- clear to auscultation Heart- regular rhythm; no murmur Abdomen- normal bowel sounds, soft, nontender Extremities- no calf tenderness Neuro- alert, oriented x 3; PERRL, EOMI; no facial palsy; no dysarthria Skin- warm & dry Discharge Data Allergies Allergy/AdvReac Type Severity Reaction Status Date / Time No Known Allergies Allergy Unverified 04/02/21 07:38 Consultations 04/02/21 08:54 ED Decision to Admit Stat 04/02/21 14:27 Consult Gastroenterology Routine Ordered Studies 04/02/21 06:06 CT abd pelvis IV con only Stat ABDOMEN AND PELVIS CT WITH IV CONTRAST CT DOSE: 518.52 mGy.cm HISTORY: Acute GI bleed gi bleed TECHNIQUE: Multiaxial CT images of the abdomen and pelvis were performed following the IV administration of 94 cc of Optiray, A dose lowering technique was utilized adhering to the principles of ALARA. COMPARISON STUDY: CT abdomen and pelvis 02/08/2020 FINDINGS: The imaged inferior cardiac chambers are unremarkable. Mild bibasilar atelectasis/fibrosis. No pneumatosis or pneumoperitoneum. The spleen, pancreas, adrenal glands, gallbladder and liver appear unremarkable. Patency of the hepatic and portal veins. Unremarkable right kidney. Unchanged appearance of the inferior pole cortex of the left kidney which may reflect a small area of cortical scarring. No hydronephrosis. Urinary bladder wall thickening with partial distention. Prostamegaly. Probable small fat filled left inguinal hernia. Atherosclerosis of the aorta without aneurysm. No adenopathy. Left-sided IVC. Tiny hiatal hernia. No bowel obstruction. Colonic diverticulosis. Mild wall thickening of the mid to distal descending colon and proximal sigmoid with mild pericolonic stranding. There is ill-defined intraluminal hyperdensity within the mid aspect of the descending colon on image 210 series 3 extending for a length of approximately 2.5 cm. Normal appendix. Postoperative changes of the abdominal wall with surgical clips. Tiny fat filled periumbilical hernia. Unremarkable soft tissues. No acute fracture. IMPRESSION: 1. Mild wall thickening of the mid to distal descending and proximal sigmoid colon with pericolonic stranding is suggestive of a nonspecific acute colitis. Acute diverticulitis considered less likely. 2. Ill-defined intraluminal hyperdensity extending for a length of 2.5 cm in the mid descending colon is suggestive of an acute gastrointestinal hemorrhage with active extravasation. GI consultation recommended. 3. Additional findings as above. ACT 112: Negative or not required by law. The above report was generated using voice recognition software. It may contain grammatical, syntax or spelling errors. Electronically signed by: Adarsh Lawrence M.D. 04/02/2021 8:17 AM Dictated: 04/02/21805Transcribed: 04/02/21805 Hospital Course (1) Acute colitis: (2) Gastrointestinal bleeding, lower: (3) Anemia: (4) KAILASH (generalized anxiety disorder): (5) Generalized osteoarthritis: (6) Tobacco use disorder: This is a 60-year-old male who has significant past medical history of hepatitis B carrier, GERD, generalized arthritis, tobacco abuse, KAILASH, marijuana use who presents to ED secondary to bright red blood per rectum x7 episodes. CT a/p: IMPRESSION:1. Mild wall thickening of the mid to distal descending and proximal sigmoid colon with pericolonic stranding is suggestive of a nonspecific acute colitis. Acute diverticulitis considered less likely. 2. Ill-defined intraluminal hyperdensity extending for a length of 2.5 cm in the mid descending colon is suggestive of an acute gastrointestinal hemorrhage with active extravasation. GI consultation recommended. Hgb 13.2, decreased from 14.5 1 year ago Hemodynamically stable Acute colitis Gastrointestinal bleeding, lower CT abd/pelvis showed Mild wall thickening of the mid to distal descending and proximal sigmoid colon with pericolonic stranding is suggestive of a nonspecific acute colitis. Ill-defined intraluminal hyperdensity extending for a length of 2.5 cm in the mid descending colon is suggestive of an acute gastrointestinal hemorrhage with active extravasation. Hemoglobin on admission 13.2, dropped to 10.4 today Gastro on board Recommend to Completion of abx course for presumed infectious colitis for 10-14 days. Continue to hold NSAID such as aspirin and meloxicam Continue clear liquid diet and advance as tolerated Will need outpatient colonoscopy in 6 to 8 weeks Continue monitor H&H daily Clinically improved Anemia Anemia of acute blood loss Hemoglobin 10.4 today Continue monitor H&H if drop below 8 we will transfuse PRBC Blood transfusion consent signed Tobacco/Marijuana Use disorder Declined nicotine patch Counseling on tobacco and illicit substance abuse KAILASH continue nortriptyline at HS DVT ppx: SCD/TEDS due to GI bleed Dispo: med tele PCP: Nona FULL CODE Total Time Total Time Spent Total Time Spent (In Minutes): 35 minutes Discharge Plan Discharge Items Patient Disposition: Home - Self-Care Reason For Visit: GI BLEED Discharge Diagnosis: (1) Acute colitis: (2) Gastrointestinal bleeding, lower: (3) Anemia: (4) Generalized osteoarthritis: (5) Tobacco use disorder: Activity: Resume your previous activity Non-emergency contact: Primary Care Provider and Machine Tester Call non-emergency contact if: you have any medication questions Follow-up/Referrals: Darion Castellano MD [Primary Care Provider] - (Date & Time 04/08/2021 3:20 PM Provider Darion Castellano MD Department [facility] ) Diet: Heart Healthy and Low Fiber Addtl Attending Provider Instructions: Follow up with your primary care provider Dr. Castellano on 04/08/2021 @3:20 PM at the [facility] Follow up with [facility] gastroenterology to arrange for colonosopy in 6 to 8 weeks Complete the course of the antibiotic with Metronidazole or Ciprofloxacin Hold aspirin for now. Your provider will advise you when to resume it Avoid any NSAIDS such as Motrin, Aleve, Advil, Naproxen, Ibuprofen, Meloxicam, ...due to risk of bleeding Seek medical attention if your symptoms (bloody stool) reoccur. Counseling on smoking cessation Ok to increase your activity gradually as tolerated Pending Studies at Discharge: No Stand-Alone Forms: [facility] Work/School Release, Smoking Cessation Medications and DC Order Prescriptions: New acetaminophen 325 mg Tablet 650 mg PO Q4H PRN (Reason: pain) Qty: 30 RF: 0 metronidazole [Flagyl] 500 mg tablet 500 mg PO Q8H 10 Days Qty: 30 RF: 0 ciprofloxacin HCl [Cipro] 500 mg tablet 500 mg PO Q12H 10 Days Qty: 20 RF: 0 Continued nortriptyline 10 mg capsule 10 mg PO HS RF: 0 omeprazole 20 mg capsule,delayed release(DR/EC) 20 mg PO DAILY PRN (Reason: GERD) RF: 0 Discontinued meloxicam 15 mg tablet 7.5 - 15 mg PO DAILY RF: 0 aspirin 81 mg Tablet,Delayed Release (Dr/Ec) 81 mg PO DAILY RF: 0 Discharge Orders: Discharge Order (Routine); Ordered 04/04/21 Ordered By: Nolan Nichols/Other Patient Handouts: A1C, Low-Fiber Diet Admission Data Admit Date/Time: 04/02/21 09:25 Attending Provider: Nolan Olvera Admit Provider: Nolan Olvera Primary Care Provider: Darion Castellano Other Providers: Nolan Olvera ; Rhea Hernandez Other Interventions: Discharge Summary Assessment (RN) Last Done: 04/04/21 14:57
== END 2021-04-04 15:22 | disposition home or self-care (01) | DRG 378 ==
LOC: ED 05:32 → 2N 09:25
DX: F41.1 Generalized anxiety disorder; K52.9 Noninfective gastroenteritis and colitis, unspecified; Z79.82 Long term (current) use of aspirin; F17.210 Nicotine dependence, cigarettes, uncomplicated; K92.2 Gastrointestinal hemorrhage, unspecified; D62 Acute posthemorrhagic anemia; M15.9 Polyosteoarthritis, unspecified; F12.10 Cannabis abuse, uncomplicated

== ENCOUNTER 2023-03-07 21:46 | Inpatient (IN) ==
[2023-03-07 22:26] LABS: iSTAT Creatinine 1.2 mg/dl (0.6-1.3); iSTAT Hemoglobin 12.6 g/dl (14.0-18.0); iSTAT Ionized Calcium 1.34 mmol/l (1.12-1.32); iSTAT Potassium 4.1 mmol/L (3.3-5.0)
[2023-03-07 22:43] LABS: Hematocrit (blood only) 35.9 % (42.0-52.0); Mean Corpuscular Hgb Conc 33.4 g/dL (32.0-36.0); Mean Corpuscular Volume 83.9 fL (80.0-100.0); Mean Platelet Volume 8.2 fL (9.4-12.4); Platelet Count 402 K/uL (130-400); RDW Coefficient of Variation 13.8 % (11.5-14.5); RDW Standard Deviation 42.3 fL (36.4-46.3); Red Blood Count 4.28 M/uL (4.70-6.10); White Blood Count 10.92 K/ul (4.8-10.8)
[2023-03-07 22:56] LABS: Alanine Aminotransferase 12 U/L (7-52); Albumin Globulin Ratio 1.4 (0.9-2); Albumin Level 4.2 gm/dl (3.4-5.0); Alkaline Phosphatase 96 U/L (34-104); Anion Gap 5 (3-11); Aspartate Aminotransferase 17 U/L (13-39); BUN Creatinine Ratio 23.7 (10-20); Bilirubin,Total 0.3 mg/dl (0.2-1.0); Blood Urea Nitrogen 27 mg/dl (6-23); Carbon Dioxide 27 mmol/L (21-32); Chloride 108 mmol/L (98-107); Creatinine Clr Calc Pharmacy 67.2 ml/min; Est GFR (African American) 79.4 ml/min; Est GFR (Non-African American) 68.5 ml/min; Globulin 3.1 gm/dl (2.5-4.0); Glucose 99 mg/dl (70-99(Fasting)); Potassium 4.1 mmol/L (3.5-5.1); Sodium 140 mmol/L (136-145); Total Protein 7.3 gm/dl (6.0-8.3)
[2023-03-07 23:02] LABS: Troponin I High Sensitivity < 2.3 pg/ml (0-20)
[2023-03-07 23:07] LABS: Partial Thromboplastin Time 27.3 Seconds (21.0-31.0); Prothrombin Time 10.7 Seconds (9.0-12.0)
--- NOTE | 2023-03-08 01:10 | Emergency Department Note ---
History of Present Illness General Chief complaint: GI Bleed Stated complaint: SEVERE GI BLEED Time Seen by Provider: 03/07/23 22:50 History of Present Illness Provider Complaint: + gross hematochezia Onset (ago): 5 day(s) Pain Consistency: + intermittent Relieved By: + none Exacerbated By: + bowel movement Context: no liver disease, no rectal trauma, no alcohol abuse, no known esophageal varices or no anticoagulant use Associated symptoms: no abdominal pain, no nausea, no vomiting or no shortness of breath Home Medications Medication Instructions Recorded Confirmed Type nortriptyline 10 mg capsule 10 mg PO HS 04/02/21 03/07/23 History omeprazole 20 mg capsule,delayed 20 mg PO DAILYBB 04/02/21 03/07/23 History release acetaminophen 325 mg tablet 650 mg PO Q4H PRN pain #30 tabs 04/04/21 03/07/23 Rx cyclobenzaprine 5 mg tablet 5 mg PO UD PRN Muscle Spasm 03/07/23 03/07/23 H istory meloxicam 15 mg tablet 15 mg PO QAM 03/07/23 03/07/23 History Allergies Allergy/AdvReac Type Severity Reaction Status Date / Time No Known Allergies Allergy Unverified 03/07/23 23:10 Past Med/Surg History Medical History Acute colitis Acute GI bleeding Anemia KAILASH (generalized anxiety disorder) Gastrointestinal bleeding, lower Generalized osteoarthritis Hepatitis B carrier No pertinent past medical history Tobacco use disorder Surgical History Hx of cataract surgery Hx of inguinal hernia surgery Family History Grandfather Lung cancer Grandmother (Maternal) Diabetes Social History Smoking Status: Current every day smoker Tobacco Type: Cigarettes packs per day: 1.5; Cigarettes Per Day: 30; Second Hand Exposure: No; Do You Dip or Chew Tobacco: No; Hx Alcohol Use: Yes Alcohol type: hard liquor Hx Substance Use: Yes Prescribed Medications: Marijuana Non-Prescribed Medications Comment: uses marijuana to sleep 2-3 nights a week Last Used Substance: Days (ago) Last Used Substance Other:: 1 Preferred Language: [place] Communication Ability: Effective City Manager Required: Yes Beliefs That Will Affect Care: None Current Living Situation: Significant Other Feels Safe at Home: Yes Assistive Devices: None Physical Exam Vital Signs: Vital Signs - 24 hr 03/07/23 21:50 03/07/23 22:29 03/07/23 22:29 Temperature 36.9 C Temperature Source Temporal Artery Sc an Pulse Rate 92 H 89 Pulse Rate [Finger ] 90 Pulse Rhythm [Fing er] Regular Pulse Strength [Fi nger] Normal Respiratory Rate 18 24 24 Respiratory Effort / Characteristics Non-Labored Sponta neous Non-Labored Respiratory Depth Normal Normal Respiratory Patter n Regular Blood Pressure 143/84 H Blood Pressure [Ri ght Arm] 123/96 Blood Pressure Zee n 103 Blood Pressure Zee n [Right Arm] 105 Pulse Oximetry 99 98 98 Oxygen Delivery Me thod Room Air Room Air Room Air Sepsis Recent Feve r Within 48 Hours No Sepsis New/Unexpla ined Change in Men montse Status No Sepsis Action Take n by Nursing No Action Required 03/07/23 22:47 03/07/23 22:33 03/07/23 23:00 Temperature Temperature Source Pulse Rate 81 92 H 88 Pulse Rate [Finger ] Pulse Rhythm [Fing er] Pulse Strength [Fi nger] Respiratory Rate 27 H 18 Respiratory Effort / Characteristics Respiratory Depth Respiratory Patter n Blood Pressure 123/96 Blood Pressure [Ri ght Arm] Blood Pressure Zee n 105 Blood Pressure Zee n [Right Arm] Pulse Oximetry 98 Oxygen Delivery Me thod Sepsis Recent Feve r Within 48 Hours Sepsis New/Unexpla ined Change in Men montse Status Sepsis Action Take n by Nursing 03/07/23 23:30 03/07/23 23:42 03/08/23 00:00 Temperature Temperature Source Pulse Rate 84 78 75 Pulse Rate [Finger ] Pulse Rhythm [Fing er] Pulse Strength [Fi nger] Respiratory Rate 21 21 22 Respiratory Effort / Characteristics Respiratory Depth Respiratory Patter n Blood Pressure 120/72 116/77 Blood Pressure [Ri ght Arm] Blood Pressure Zee n 88 90 Blood Pressure Zee n [Right Arm] Pulse Oximetry Oxygen Delivery Me thod Sepsis Recent Feve r Within 48 Hours Sepsis New/Unexpla ined Change in Men montse Status Sepsis Action Take n by Nursing Physical Exam: Physical Exam GENERAL: She is oriented to person, place, and time. She appears well-developed and well-nourished. She does not appear distressed. HENT: Exam performed. -Head: Normocephalic and atraumatic. -Right Ear: External ear normal. No mastoid erythema -Left Ear: External ear normal. No mastoid erythema -Mouth/Throat: The oropharynx is clear and moist. No trismus in the jaw. No dental abscesses or uvula swelling. No oropharyngeal exudate or tonsillar abscesses. EYES: Conjunctivae and EOM are normal.Right eye exhibits no discharge. Left eye exhibits no discharge. No scleral icterus. NECK: Normal range of motion. Neck supple. No JVD present. No tracheal deviation and normal range of motion present. CV: Normal rate, regular rhythm, normal heart sounds and intact distal pulses. There is no peripheral edema. Palpable radial pulses bue. PULM/CHEST: Effort normal and breath sounds normal. No respiratory distress. No stridor. She has no wheezes. She has no rales. -Chest Wall: She exhibits no tenderness. ABD: The abdomen is soft. Bowel sounds are normal. She has no distension. No mass is present. There is no tenderness. There is no rebound, no guarding, no Ramirez's sign and no tenderness at McBurney's point. Rovsig negative Rectal: Bright red blood per rectum. MUSC/SKEL: Normal range of motion. There is no peripheral edema, tenderness or deformity. NEURO: Motor and sensation grossly intact. SKIN: Skin is warm and dry. She is not diaphoretic. PSYCH: She has a normal mood and affect. Behavior is normal. Judgment and thought content normal. Course Course 2249: The patient was evaluated in room C1. A complete history and physical exam was performed Medical Decision Making Laboratory Data Attestation: I reviewed the patient's lab results. 03/07/23 22:00 03/07/23 22:00 Lab Results 03/07/23 03/07/23 03/07/23 Range/Units 22:00 22:00 22:00 WBC 10.92 H (4.8-10.8) K/ul RBC 4.28 L (4.70-6.10) M/uL Hgb 12.0 L (14.0-18.0) g/dl POC Hgb (14.0-18.0) g/dl Hct 35.9 L (42.0-52.0) % POC Hct (42-52) % MCV 83.9 (80.0-100.0) fL MCH 28.0 (25.0-34.0) pg MCHC 33.4 (32.0-36.0) g/dL RDW Std Deviation 42.3 (36.4-46.3) fL RDW Coeff of Reji 13.8 (11.5-14.5) % Plt Count 402 H (130-400) K/uL MPV 8.2 L (9.4-12.4) fL PT 10.7 (9.0-12.0) Seconds INR 1.0 (0.9-1.1) APTT 27.3 (21.0-31.0) Seconds PTT Ratio 1.0 POC Sodium (135-144) mmol/L Sodium 140 (136-145) mmol/L POC Potassium (3.3-5.0) mmol/L Potassium 4.1 (3.5-5.1) mmol/L POC Chloride (101-112) mmol/L Chloride 108 H (98-107) mmol/L Carbon Dioxide 27 (21-32) mmol/L POC Total CO2 (24-31) mmol/L Anion Gap 5 (3-11) POC Anion Gap (16-25) mmol/L POC BUN (7-18) mg/dl BUN 27 H (6-23) mg/dl Creatinine 1.14 (0.6-1.4) mg/dl POC Creatinine (0.6-1.3) mg/dl Est Cr Clr Drug Dosing 67.2 ml/min Est GFR ( Amer) 79.4 ml/min Est GFR (Non-Af Amer) 68.5 ml/min BUN/Creatinine Ratio 23.7 H (10-20) Glucose 99 (70-99(Fasting)) mg/dl POC Glucose (other) (70-99) mg/dl Calcium 10.0 (8.6-10.3) mg/dl POC Ioniz Calcium Kannan (1.12-1.32) mmol/l Total Bilirubin 0.3 (0.2-1.0) mg/dl AST 17 (13-39) U/L ALT 12 (7-52) U/L Alkaline Phosphatase 96 (34-104) U/L Troponin I High Sens < 2.3 (0-20) pg/ml Total Protein 7.3 (6.0-8.3) gm/dl Albumin 4.2 (3.4-5.0) gm/dl Globulin 3.1 (2.5-4.0) gm/dl Albumin/Globulin Ratio 1.4 (0.9-2) POC Stool Occult Blood (Negative) SARS-CoV-2, RNA, NAAT (NEGATIVE) Blood Type Antibody Screen 03/07/23 03/07/23 03/07/23 Range/Units 22:15 22:35 23:11 WBC (4.8-10.8) K/ul RBC (4.70-6.10) M/uL Hgb (14.0-18.0) g/dl POC Hgb 12.6 L (14.0-18.0) g/dl Hct (42.0-52.0) % POC Hct 37 L (42-52) % MCV (80.0-100.0) fL MCH (25.0-34.0) pg MCHC (32.0-36.0) g/dL RDW Std Deviation (36.4-46.3) fL RDW Coeff of Reji (11.5-14.5) % Plt Count (130-400) K/uL MPV (9.4-12.4) fL PT (9.0-12.0) Seconds INR (0.9-1.1) APTT (21.0-31.0) Seconds PTT Ratio POC Sodium 142 (135-144) mmol/L Sodium (136-145) mmol/L POC Potassium 4.1 (3.3-5.0) mmol/L Potassium (3.5-5.1) mmol/L POC Chloride 106 (101-112) mmol/L Chloride (98-107) mmol/L Carbon Dioxide (21-32) mmol/L POC Total CO2 25 (24-31) mmol/L Anion Gap (3-11) POC Anion Gap 15.0 L (16-25) mmol/L POC BUN 27 H (7-18) mg/dl BUN (6-23) mg/dl Creatinine (0.6-1.4) mg/dl POC Creatinine 1.2 (0.6-1.3) mg/dl Est Cr Clr Drug Dosing ml/min Est GFR ( Amer) ml/min Est GFR (Non-Af Amer) ml/min BUN/Creatinine Ratio (10-20) Glucose (70-99(Fasting)) mg/dl POC Glucose (other) 99 (70-99) mg/dl Calcium (8.6-10.3) mg/dl POC Ioniz Calcium Kannan 1.34 H (1.12-1.32) mmol/l Total Bilirubin (0.2-1.0) mg/dl AST (13-39) U/L ALT (7-52) U/L Alkaline Phosphatase (34-104) U/L Troponin I High Sens (0-20) pg/ml Total Protein (6.0-8.3) gm/dl Albumin (3.4-5.0) gm/dl Globulin (2.5-4.0) gm/dl Albumin/Globulin Ratio (0.9-2) POC Stool Occult Blood Positive A (Negative) SARS-CoV-2, RNA, NAAT (NEGATIVE) Blood Type O Positive Antibody Screen NEGATIVE 03/07/23 Range/Units 23:42 WBC (4.8-10.8) K/ul RBC (4.70-6.10) M/uL Hgb (14.0-18.0) g/dl POC Hgb (14.0-18.0) g/dl Hct (42.0-52.0) % POC Hct (42-52) % MCV (80.0-100.0) fL MCH (25.0-34.0) pg MCHC (32.0-36.0) g/dL RDW Std Deviation (36.4-46.3) fL RDW Coeff of Reji (11.5-14.5) % Plt Count (130-400) K/uL MPV (9.4-12.4) fL PT (9.0-12.0) Seconds INR (0.9-1.1) APTT (21.0-31.0) Seconds PTT Ratio POC Sodium (135-144) mmol/L Sodium (136-145) mmol/L POC Potassium (3.3-5.0) mmol/L Potassium (3.5-5.1) mmol/L POC Chloride (101-112) mmol/L Chloride (98-107) mmol/L Carbon Dioxide (21-32) mmol/L POC Total CO2 (24-31) mmol/L Anion Gap (3-11) POC Anion Gap (16-25) mmol/L POC BUN (7-18) mg/dl BUN (6-23) mg/dl Creatinine (0.6-1.4) mg/dl POC Creatinine (0.6-1.3) mg/dl Est Cr Clr Drug Dosing ml/min Est GFR ( Amer) ml/min Est GFR (Non-Af Amer) ml/min BUN/Creatinine Ratio (10-20) Glucose (70-99(Fasting)) mg/dl POC Glucose (other) (70-99) mg/dl Calcium (8.6-10.3) mg/dl POC Ioniz Calcium Kannan (1.12-1.32) mmol/l Total Bilirubin (0.2-1.0) mg/dl AST (13-39) U/L ALT (7-52) U/L Alkaline Phosphatase (34-104) U/L Troponin I High Sens (0-20) pg/ml Total Protein (6.0-8.3) gm/dl Albumin (3.4-5.0) gm/dl Globulin (2.5-4.0) gm/dl Albumin/Globulin Ratio (0.9-2) POC Stool Occult Blood (Negative) SARS-CoV-2, RNA, NAAT NEGATIVE (NEGATIVE) Blood Type Antibody Screen MDM Narrative Cardiac monitoring: An order was placed for continuous cardiac monitoring. The monitor shows a rate of 90 with sinus rhythm interpreted by me Vital signs stable. Hemoglobin stable. Patient has had several bowel movements in the emergency department with gross hematochezia and passing red clots. Patient be admitted to the [facility] hospitalist team for serial hemoglobins GI evaluation. Dr. Villalobos aware of patient. Impression & Plan Lower gastrointestinal hemorrhage Discharge Plan Visit Data Chief Complaint: GI Bleed Stated Complaint: SEVERE GI BLEED ED Provider: Noah Bello Discharge Problem: Lower gastrointestinal hemorrhage Patient Disposition: Being Evaluated by Hospitalist Forms Stand Alone Forms: My [facility] Prescriptions Prescriptions: No Action nortriptyline 10 mg capsule 10 mg PO HS omeprazole 20 mg capsule,delayed release(DR/EC) 20 mg PO DAILYBB acetaminophen 325 mg Tablet 650 mg PO Q4H PRN (Reason: pain) Qty: 30 0RF meloxicam 15 mg tablet 15 mg PO QAM cyclobenzaprine 5 mg tablet 5 mg PO UD PRN (Reason: Muscle Spasm) Referrals Referrals: Darion Castellano MD [Primary Care Provider] -
--- NOTE | 2023-03-08 01:23 | History & Physical Report ---
Date of Service March 08, 2023 Assessment & Plan (1) Lower gastrointestinal hemorrhage: Plan: 62-year-old male presents with a lower GI bleed. Bright red blood per rectum Several episodes as per patient Hemoglobin 12 We will follow H&H every 6 hours Blood consent obtained IV Protonix twice daily N.p.o., IV fluids GI consult in a.m. Close monitoring telemetry floor We will hold meloxicam Possible diverticular bleed has history of diverticulosis KAILASH On nortriptyline Tobacco abuse needs counseling DVT prophylax SCDs Disposition Admit to telemetry Full code History of Present Illness Chief Complaint: GI bleed Primary Care Provider: Darion Castellano MD This is 62-year-old male with past medical history significant for hyperlipidemia GERD, diverticulosis, generalized osteoarthritis, hepatitis B carrier, tobacco use disorder, KAILASH, marijuana use presents with bright red blood per rectum. Patient states on last Sunday he had few pieces of pizza the next day noticed some blood in the stools for 1 time, and since then having blood per rectum once daily but tonight he had several episodes which prompted him to come to the ER. Has mild abdominal discomfort. Mild nausea. [place] dizzy when he had diarrhea. Denies any headache. No blurred visions. No earache or runny nose. Has some sore throat. No dysphagia. No chest pain or shortness of breath. No fevers no cough. Currently resting comfortably and hemodynamically stable. Allergies Allergy/AdvReac Type Severity Reaction Status Date / Time No Known Allergies Allergy Unverified 03/07/23 23:10 Home Medications Medication Instructions Recorded Confirmed Type nortriptyline 10 mg capsule 10 mg PO HS 04/02/21 03/07/23 History omeprazole 20 mg capsule,delayed 20 mg PO DAILYBB 04/02/21 03/07/23 History release acetaminophen 325 mg tablet 650 mg PO Q4H PRN pain #30 tabs 04/04/21 03/07/23 Rx cyclobenzaprine 5 mg tablet 5 mg PO UD PRN Muscle Spasm 03/07/23 03/07/23 History meloxicam 15 mg tablet 15 mg PO QAM 03/07/23 03/07/23 History Past Med/Surg History Medical History Acute colitis Acute GI bleeding Anemia KAILASH (generalized anxiety disorder) Gastrointestinal bleeding, lower Generalized osteoarthritis Hepatitis B carrier No pertinent past medical history Tobacco use disorder Surgical History Hx of cataract surgery Hx of inguinal hernia surgery Family History Grandfather Lung cancer Grandmother (Maternal) Diabetes Social History (Updated 03/08/23 @ 02:02 by Cristopher Villalobos MD) Smoking Status: Current every day smoker Tobacco Type: Cigarettes packs per day: 1.5; Cigarettes Per Day: 30; Second Hand Exposure: No; Do You Dip or Chew Tobacco: No; Hx Alcohol Use: Yes (occasional) Alcohol type: hard liquor Hx Substance Use: Yes Prescribed Medications: Marijuana Non-Prescribed Medications Comment: uses marijuana to sleep 2-3 nights a week Last Used Substance: Days (ago) Last Used Substance Other:: 1 Preferred Language: Namibian Communication Ability: Effective Ar Manager Required: Yes Beliefs That Will Affect Care: None Current Living Situation: Significant Other Feels Safe at Home: Yes Assistive Devices: None Review of Systems Review of Systems: All systems reviewed & are unremarkable except as noted in Subjective Physical Exam Physical Exam: General- not in acute dstress Head- atraumatic Eyes- PERRL, ENT- oropharynx clear Neck- supple, no JVD Lungs- clear to auscultation and percussion Heart- regular rhythm; no murmur, no gallop, no rub appreciated Abdomen- normal bowel sounds, soft,mild diffuse discomfort, no masses or hepatosplenomegaly Extremities- no pretibial edema, no erythema seen Neuro- alert, oriented x 3; PERRL, EOMI; no facial palsy; no dysarthria;Non focal Skin- warm & dry Results & Data Results & Data Vital Signs (Past 12 Hours) Vital Signs Temp Pulse Pulse Resp BP BP Pulse Ox 03/08/23 00:00 75 22 116/77 03/07/23 23:42 78 21 120/72 03/07/23 23:30 84 21 03/07/23 23:00 88 18 03/07/23 22:33 92 H 27 H 123/96 98 03/07/23 22:47 81 03/07/23 22:29 89 24 98 03/07/23 22:29 90 24 123/96 98 03/07/23 21:50 36.9 C 92 H 18 143/84 H 99 O2 Del Method 03/08/23 00:00 03/07/23 23:42 03/07/23 23:30 03/07/23 23:00 03/07/23 22:33 03/07/23 22:47 03/07/23 22:29 Room Air 03/07/23 22:29 Room Air 03/07/23 21:50 Room Air Diagnostic Findings Laboratory Results WBC 10.92 K/ul (4.8-10.8) H 03/07/23 22:00 RBC 4.28 M/uL (4.70-6.10) L 03/07/23 22:00 Hgb 12.0 g/dl (14.0-18.0) L 03/07/23 22:00 POC Hgb 12.6 g/dl (14.0-18.0) L 03/07/23 22:15 Hct 35.9 % (42.0-52.0) L 03/07/23 22:00 POC Hct 37 % (42-52) L 03/07/23 22:15 MCV 83.9 fL (80.0-100.0) 03/07/23 22:00 MCH 28.0 pg (25.0-34.0) 03/07/23 22:00 MCHC 33.4 g/dL (32.0-36.0) 03/07/23 22:00 RDW Std Deviation 42.3 fL (36.4-46.3) 03/07/23 22:00 RDW Coeff of Reji 13.8 % (11.5-14.5) 03/07/23 22:00 Plt Count 402 K/uL (130-400) H 03/07/23 22:00 MPV 8.2 fL (9.4-12.4) L 03/07/23 22:00 PT 10.7 Seconds (9.0-12.0) 03/07/23 22:00 INR 1.0 (0.9-1.1) 03/07/23 22:00 APTT 27.3 Seconds (21.0-31.0) 03/07/23 22:00 PTT Ratio 1.0 03/07/23 22:00 POC Sodium 142 mmol/L (135-144) 03/07/23 22:15 Sodium 140 mmol/L (136-145) 03/07/23 22:00 POC Potassium 4.1 mmol/L (3.3-5.0) 03/07/23 22:15 Potassium 4.1 mmol/L (3.5-5.1) 03/07/23 22:00 POC Chloride 106 mmol/L (101-112) 03/07/23 22:15 Chloride 108 mmol/L (98-107) H 03/07/23 22:00 Carbon Dioxide 27 mmol/L (21-32) 03/07/23 22:00 POC Total CO2 25 mmol/L (24-31) 03/07/23 22:15 Anion Gap 5 (3-11) 03/07/23 22:00 POC Anion Gap 15.0 mmol/L (16-25) L 03/07/23 22:15 POC BUN 27 mg/dl (7-18) H 03/07/23 22:15 BUN 27 mg/dl (6-23) H 03/07/23 22:00 Creatinine 1.14 mg/dl (0.6-1.4) 03/07/23 22:00 POC Creatinine 1.2 mg/dl (0.6-1.3) 03/07/23 22:15 Est Cr Clr Drug Dosing 67.2 ml/min 03/07/23 22:00 Est GFR ( Amer) 79.4 ml/min 03/07/23 22:00 Est GFR (Non-Af Amer) 68.5 ml/min 03/07/23 22:00 BUN/Creatinine Ratio 23.7 (10-20) H 03/07/23 22:00 Glucose 99 mg/dl (70-99(Fasting)) 03/07/23 22:00 POC Glucose (other) 99 mg/dl (70-99) 03/07/23 22:15 Calcium 10.0 mg/dl (8.6-10.3) 03/07/23 22:00 POC Ioniz Calcium Kannan 1.34 mmol/l (1.12-1.32) H 03/07/23 22:15 Total Bilirubin 0.3 mg/dl (0.2-1.0) 03/07/23 22:00 AST 17 U/L (13-39) 03/07/23 22:00 ALT 12 U/L (7-52) 03/07/23 22:00 Alkaline Phosphatase 96 U/L (34-104) 03/07/23 22:00 Troponin I High Sens < 2.3 pg/ml (0-20) 03/07/23 22:00 Total Protein 7.3 gm/dl (6.0-8.3) 03/07/23 22:00 Albumin 4.2 gm/dl (3.4-5.0) 03/07/23 22:00 Globulin 3.1 gm/dl (2.5-4.0) 03/07/23 22:00 Albumin/Globulin Ratio 1.4 (0.9-2) 03/07/23 22:00 POC Stool Occult Blood Positive (Negative) A 03/07/23 22:35 SARS-CoV-2, RNA, NAAT NEGATIVE (NEGATIVE) 03/07/23 23:42 Blood Type O Positive 03/07/23 23:11 Antibody Screen NEGATIVE 03/07/23 23:11 Code Status & VTE Plan VTE Prophylaxis Plan VTE Prophylaxis will be ordered: Yes
[2023-03-08] MEDS ORDERED: ACETAMINOPHEN 325 MG TAB PO PRN (02:21)
[2023-03-08] MEDS ORDERED: CYCLOBENZAPRINE HCL 5 MG TAB PO PRN (02:21)
[2023-03-08] MEDS ORDERED: NITROGLYCERIN SL 0.4 MG/TAB TAB SL PRN (02:21)
[2023-03-08] MEDS: SODIUM CHLORIDE 0.9% 1000ML 1,000 ML IV SCH ×2 (04:34→16:42)
[2023-03-08 05:01] LABS: Basophils # (auto) 0.05 K/uL (0-0.2); Basophils % (auto) 0.5 %; Eosinophils # (auto) 0.29 K/uL (0-0.50); Hematocrit (blood only) 32.2 % (42.0-52.0); Hemoglobin 10.5 g/dl (14.0-18.0); Immature Granulocytes # (auto) 0.03 K/uL (0.01-0.20); Immature Granulocytes % (auto) 0.3 %; Lymphocytes # (auto) 2.84 K/uL (1.2-3.4); Mean Corpuscular Hemoglobin 27.4 pg (25.0-34.0); Mean Corpuscular Hgb Conc 32.6 g/dL (32.0-36.0); Mean Corpuscular Volume 84.1 fL (80.0-100.0); Mean Platelet Volume 8.3 fL (9.4-12.4); Monocytes # (auto) 0.74 K/uL (0.11-0.59); Monocytes % (auto) 7.5 %; Neutrophils # (auto) 5.86 K/uL (1.40-6.50); Neutrophils % (auto) 59.7 %; Platelet Count 357 K/uL (130-400); RDW Coefficient of Variation 13.9 % (11.5-14.5); RDW Standard Deviation 42.5 fL (36.4-46.3); Red Blood Count 3.83 M/uL (4.70-6.10); White Blood Count 9.81 K/ul (4.8-10.8)
[2023-03-08 05:09] LABS: BUN Creatinine Ratio 30.1 (10-20); Calcium 9.4 mg/dl (8.6-10.3); Creatinine Clr Calc Pharmacy 82.4 ml/min; Est GFR (African American) 101.6 ml/min; Est GFR (Non-African American) 87.7 ml/min; Magnesium 2.1 mg/dl (1.7-2.4); Potassium 4.8 mmol/L (3.5-5.1)
--- NOTE | 2023-03-08 08:54 | Gastrointestinal Consultation ---
Date of Consultation March 08, 2023 Assessment & Plan (1) Lower gastrointestinal hemorrhage: Plan 62 year old male with abd cramping, large volume rectal bleeding every hour for about 5 days. DDX discussed: diverticular bleed, ischemic, infectios, AVM, vs other May have clear liquids today Please arrange CT imaging Submit stool studies If stool studies are negative, will consider endoscopic evaluation Sunday Please keep NPO after midnight PO PPI BID Trend H&H Transfuse PRN Document GI output We appreciate assistance in the management of any serological abnormality and corrections to include: hemoglobin >7, INR <2, platelets >50,000, potassium levels >3.5 but <5.3, and sodium levels within 5 points of the reference range prior to endoscopic evaluation. Thank you for allowing us to participate in the care of this patient. Please call with any acute changes, questions or concerns. Please see addendum below with additional recommendation from my supervising physician. Supervising Physician Co-Signing Physician Notes I performed a history and physical examination of the patient today, including specifically on physical exam - soft abdomen. I have discussed the patient's management with the advanced practitioner. Please refer to the nurse practitioner's note for the documented findings and plan of care. CT scan showed diverticulitis hence would hold off on colonoscopy for now and schedule it as OP. Treat with IV ABx. Plan for EGD tomorrow. History of Present Illness Reason for Consultation: rectal bleeding Requesting Physician: Leonora Attending Physician: Wilmer Lea MD History of Present Illness 62 year old male with history of GERD, dyslipidemia, OA, HepB, KAILASH and others below admitted through the ED with rectal bleeding. Pt was seen and evaluated ,chart reviewed. Suggests sunday he noted some BRB with BM. Sunday, Sunday, Sunday he had formed stool followed by BRB in toilet bowl with clots. This worsened Sunday/Sunday which prompted ED evaluation. He now suggests lower abd cramping followed by large volume hematochezia without any stool. Suggests every hour he has a bloody stool. No black stools. No report of hematemesis or coffee ground emesis. He notes similar presentation in 2020, never had colonoscopy following this episode. Was asymptomatic until now. No AC Does use some NSAIDs BUN 28 w/ normal CT HGB 12 --> 10 CTAP 2020: 1. Mild wall thickening of the mid to distal descending and proximal sigmoid colon with pericolonic stranding is suggestive of a nonspecific acute colitis. Acute diverticulitis considered less likely.2. Ill-defined intraluminal hyperdensity extending for a length of 2.5 cm in the mid descending colon is suggestive of an acute gastrointestinal hemorrhage with active extravasation. GI consultation recommended. EGD: none Colon: none Allergies Allergy/AdvReac Type Severity Reaction Status Date / Time No Known Allergies Allergy Unverified 03/07/23 23:10 Home Medications Medication Instructions Recorded Confirmed Type nortriptyline 10 mg capsule 10 mg PO HS 04/02/21 03/07/23 History omeprazole 20 mg capsule,delayed 20 mg PO DAILYBB 04/02/21 03/07/23 History release acetaminophen 325 mg tablet 650 mg PO Q4H PRN pain #30 tabs 04/04/21 03/07/23 Rx cyclobenzaprine 5 mg tablet 5 mg PO UD PRN Muscle Spasm 03/07/23 03/07/23 History meloxicam 15 mg tablet 15 mg PO QAM 03/07/23 03/07/23 History Patient History Medical History Acute colitis Acute GI bleeding Anemia KAILASH (generalized anxiety disorder) Gastrointestinal bleeding, lower Generalized osteoarthritis Hepatitis B carrier No pertinent past medical history Tobacco use disorder Surgical History Hx of cataract surgery Hx of inguinal hernia surgery Family History Grandfather Lung cancer Grandmother (Maternal) Diabetes Social History (Updated 03/08/23 @ 02:02 by Cristopher Villalobos MD) Smoking Status: Current every day smoker Tobacco Type: Cigarettes packs per day: 1.5; Cigarettes Per Day: 45; Second Hand Exposure: No; Do You Dip or Chew Tobacco: No; Hx Alcohol Use: No Hx Substance Use: No Preferred Language: Romanian Communication Ability: Effective Mineralogy Teacher Required: No Beliefs That Will Affect Care: None Current Living Situation: Significant Other Other Information That Helps Us Care for You: No Feels Safe at Home: Yes Safety Concerns: Feels Safe At This Time Assistive Devices: None Review of Systems Review of Systems: All systems reviewed & are unremarkable except as noted in HPI & below Physical Exam Constitutional: WD/WN, vitals as above Respiratory: normal respiratory effort, lungs clear to auscultation Cardiovascular: Rate/Rhythm: regular rate and regular rhythm Gastrointestinal (Abdomen): normal bowel sounds, soft, nontender, no hepatosplenomegaly Skin: no rashes, warm and dry Results & Data Vital Signs (Past 12 Hours) Vital Signs Temp Pulse Pulse Resp BP BP Pulse Ox 03/08/23 08:06 36.8 C 89 18 110/67 99 03/08/23 07:00 88 03/08/23 06:26 82 03/08/23 06:22 03/08/23 05:48 36.4 C L 83 16 143/87 H 100 03/08/23 02:21 03/08/23 00:07 36.4 C L 83 16 143/87 H 100 03/08/23 04:34 81 26 H 129/73 98 03/08/23 04:00 73 16 95/58 L 03/08/23 03:30 73 17 03/08/23 03:00 73 18 03/08/23 02:30 76 18 03/08/23 02:00 73 17 03/08/23 01:30 78 27 H 03/08/23 00:59 79 19 133/89 03/08/23 00:31 88 14 03/08/23 00:00 75 22 116/77 03/07/23 23:42 78 21 120/72 03/07/23 23:30 84 21 03/07/23 23:00 88 18 03/07/23 22:33 92 H 27 H 123/96 98 03/07/23 22:47 81 03/07/23 22:29 89 24 98 03/07/23 22:29 90 24 123/96 98 03/07/23 21:50 36.9 C 92 H 18 143/84 H 99 Pulse Ox O2 Del Method O2 Del Method 03/08/23 08:06 Room Air 03/08/23 07:00 03/08/23 06:26 03/08/23 06:22 Room Air 03/08/23 05:48 Room Air 03/08/23 02:21 100 Room Air 03/08/23 00:07 Room Air 03/08/23 04:34 03/08/23 04:00 03/08/23 03:30 03/08/23 03:00 03/08/23 02:30 03/08/23 02:00 03/08/23 01:30 03/08/23 00:59 03/08/23 00:31 03/08/23 00:00 03/07/23 23:42 03/07/23 23:30 03/07/23 23:00 03/07/23 22:33 03/07/23 22:47 03/07/23 22:29 Room Air 03/07/23 22:29 Room Air 03/07/23 21:50 Room Air Laboratory Results 03/08/23 03/08/23 03/07/23 Range/Units 04:20 04:20 23:42 WBC 9.81 (4.8-10.8) K/ul RBC 3.83 L (4.70-6.10) M/uL Hgb 10.5 L (14.0-18.0) g/dl POC Hgb (14.0-18.0) g/dl Hct 32.2 L (42.0-52.0) % POC Hct (42-52) % MCV 84.1 (80.0-100.0) fL MCH 27.4 (25.0-34.0) pg MCHC 32.6 (32.0-36.0) g/dL RDW Std Deviation 42.5 (36.4-46.3) fL RDW Coeff of Reji 13.9 (11.5-14.5) % Plt Count 357 (130-400) K/uL MPV 8.3 L (9.4-12.4) fL Immature Gran % (Auto) 0.3 % Neut % (Auto) 59.7 % Lymph % (Auto) 29.0 % Overton % (Auto) 7.5 % Eos % (Auto) 3.0 % Baso % (Auto) 0.5 % Neut # (Auto) 5.86 (1.40-6.50) K/uL Lymph # (Auto) 2.84 (1.2-3.4) K/uL [place]ton # (Auto) 0.74 H (0.11-0.59) K/uL Eos # (Auto) 0.29 (0-0.50) K/uL Baso # (Auto) 0.05 (0-0.2) K/uL Immature Gran # (Auto) 0.03 (0.01-0.20) K/uL PT (9.0-12.0) Seconds INR (0.9-1.1) APTT (21.0-31.0) Seconds PTT Ratio POC Sodium (135-144) mmol/L Sodium 140 (136-145) mmol/L POC Potassium (3.3-5.0) mmol/L Potassium 4.8 (3.5-5.1) mmol/L POC Chloride (101-112) mmol/L Chloride 110 H (98-107) mmol/L Carbon Dioxide 27 (21-32) mmol/L POC Total CO2 (24-31) mmol/L Anion Gap 3 (3-11) POC Anion Gap (16-25) mmol/L POC BUN (7-18) mg/dl BUN 28 H (6-23) mg/dl Creatinine 0.93 (0.6-1.4) mg/dl POC Creatinine (0.6-1.3) mg/dl Est Cr Clr Drug Dosing 82.4 ml/min Est GFR ( Amer) 101.6 ml/min Est GFR (Non-Af Amer) 87.7 ml/min BUN/Creatinine Ratio 30.1 H (10-20) Glucose 90 (70-99(Fasting)) mg/dl POC Glucose (other) (70-99) mg/dl Calcium 9.4 (8.6-10.3) mg/dl POC Ioniz Calcium Kannan (1.12-1.32) mmol/l Magnesium 2.1 (1.7-2.4) mg/dl Total Bilirubin (0.2-1.0) mg/dl AST (13-39) U/L ALT (7-52) U/L Alkaline Phosphatase (34-104) U/L Troponin I High Sens (0-20) pg/ml Total Protein (6.0-8.3) gm/dl Albumin (3.4-5.0) gm/dl Globulin (2.5-4.0) gm/dl Albumin/Globulin Ratio (0.9-2) POC Stool Occult Blood (Negative) SARS-CoV-2, RNA, NAAT NEGATIVE (NEGATIVE) Blood Type Antibody Screen 03/07/23 03/07/23 03/07/23 Range/Units 23:11 22:35 22:15 WBC (4.8-10.8) K/ul RBC (4.70-6.10) M/uL Hgb (14.0-18.0) g/dl POC Hgb 12.6 L (14.0-18.0) g/dl Hct (42.0-52.0) % POC Hct 37 L (42-52) % MCV (80.0-100.0) fL MCH (25.0-34.0) pg MCHC (32.0-36.0) g/dL RDW Std Deviation (36.4-46.3) fL RDW Coeff of Reji (11.5-14.5) % Plt Count (130-400) K/uL MPV (9.4-12.4) fL Immature Gran % (Auto) % Neut % (Auto) % Lymph % (Auto) % [place] % (Auto) % Eos % (Auto) % Baso % (Auto) % Neut # (Auto) (1.40-6.50) K/uL Lymph # (Auto) (1.2-3.4) K/uL Overton # (Auto) (0.11-0.59) K/uL Eos # (Auto) (0-0.50) K/uL Baso # (Auto) (0-0.2) K/uL Immature Gran # (Auto) (0.01-0.20) K/uL PT (9.0-12.0) Seconds INR (0.9-1.1) APTT (21.0-31.0) Seconds PTT Ratio POC Sodium 142 (135-144) mmol/L Sodium (136-145) mmol/L POC Potassium 4.1 (3.3-5.0) mmol/L Potassium (3.5-5.1) mmol/L POC Chloride 106 (101-112) mmol/L Chloride (98-107) mmol/L Carbon Dioxide (21-32) mmol/L POC Total CO2 25 (24-31) mmol/L Anion Gap (3-11) POC Anion Gap 15.0 L (16-25) mmol/L POC BUN 27 H (7-18) mg/dl BUN (6-23) mg/dl Creatinine (0.6-1.4) mg/dl POC Creatinine 1.2 (0.6-1.3) mg/dl Est Cr Clr Drug Dosing ml/min Est GFR ( Amer) ml/min Est GFR (Non-Af Amer) ml/min BUN/Creatinine Ratio (10-20) Glucose (70-99(Fasting)) mg/dl POC Glucose (other) 99 (70-99) mg/dl Calcium (8.6-10.3) mg/dl POC Ioniz Calcium Kannan 1.34 H (1.12-1.32) mmol/l Magnesium (1.7-2.4) mg/dl Total Bilirubin (0.2-1.0) mg/dl AST (13-39) U/L ALT (7-52) U/L Alkaline Phosphatase (34-104) U/L Troponin I High Sens (0-20) pg/ml Total Protein (6.0-8.3) gm/dl Albumin (3.4-5.0) gm/dl Globulin (2.5-4.0) gm/dl Albumin/Globulin Ratio (0.9-2) POC Stool Occult Blood Positive A (Negative) SARS-CoV-2, RNA, NAAT (NEGATIVE) Blood Type O Positive Antibody Screen NEGATIVE 03/07/23 03/07/23 03/07/23 Range/Units 22:00 22:00 22:00 WBC 10.92 H (4.8-10.8) K/ul RBC 4.28 L (4.70-6.10) M/uL Hgb 12.0 L (14.0-18.0) g/dl POC Hgb (14.0-18.0) g/dl Hct 35.9 L (42.0-52.0) % POC Hct (42-52) % MCV 83.9 (80.0-100.0) fL MCH 28.0 (25.0-34.0) pg MCHC 33.4 (32.0-36.0) g/dL RDW Std Deviation 42.3 (36.4-46.3) fL RDW Coeff of Reji 13.8 (11.5-14.5) % Plt Count 402 H (130-400) K/uL MPV 8.2 L (9.4-12.4) fL Immature Gran % (Auto) % Neut % (Auto) % Lymph % (Auto) % [place] % (Auto) % Eos % (Auto) % Baso % (Auto) % Neut # (Auto) (1.40-6.50) K/uL Lymph # (Auto) (1.2-3.4) K/uL Overton # (Auto) (0.11-0.59) K/uL Eos # (Auto) (0-0.50) K/uL Baso # (Auto) (0-0.2) K/uL Immature Gran # (Auto) (0.01-0.20) K/uL PT 10.7 (9.0-12.0) Seconds INR 1.0 (0.9-1.1) APTT 27.3 (21.0-31.0) Seconds PTT Ratio 1.0 POC Sodium (135-144) mmol/L Sodium 140 (136-145) mmol/L POC Potassium (3.3-5.0) mmol/L Potassium 4.1 (3.5-5.1) mmol/L POC Chloride (101-112) mmol/L Chloride 108 H (98-107) mmol/L Carbon Dioxide 27 (21-32) mmol/L POC Total CO2 (24-31) mmol/L Anion Gap 5 (3-11) POC Anion Gap (16-25) mmol/L POC BUN (7-18) mg/dl BUN 27 H (6-23) mg/dl Creatinine 1.14 (0.6-1.4) mg/dl POC Creatinine (0.6-1.3) mg/dl Est Cr Clr Drug Dosing 67.2 ml/min Est GFR ( Amer) 79.4 ml/min Est GFR (Non-Af Amer) 68.5 ml/min BUN/Creatinine Ratio 23.7 H (10-20) Glucose 99 (70-99(Fasting)) mg/dl POC Glucose (other) (70-99) mg/dl Calcium 10.0 (8.6-10.3) mg/dl POC Ioniz Calcium Kannan (1.12-1.32) mmol/l Magnesium (1.7-2.4) mg/dl Total Bilirubin 0.3 (0.2-1.0) mg/dl AST 17 (13-39) U/L ALT 12 (7-52) U/L Alkaline Phosphatase 96 (34-104) U/L Troponin I High Sens < 2.3 (0-20) pg/ml Total Protein 7.3 (6.0-8.3) gm/dl Albumin 4.2 (3.4-5.0) gm/dl Globulin 3.1 (2.5-4.0) gm/dl Albumin/Globulin Ratio 1.4 (0.9-2) POC Stool Occult Blood (Negative) SARS-CoV-2, RNA, NAAT (NEGATIVE) Blood Type Antibody Screen
[2023-03-08] MEDS: PANTOprazole 40 MG in SYRINGE 0 ML IV SCH ×2 (09:07→21:09)
[2023-03-08 11:19] LABS: Hemoglobin 10.4 g/dl (14.0-18.0)
[2023-03-08] MEDS ORDERED: OPTIRAY 320 100ml IV ONE (12:18)
--- NOTE | 2023-03-08 12:55 | CT Scan Report ---
CT SCAN OF THE ABDOMEN AND PELVIS WITH IV CONTRAST CLINICAL HISTORY: Generalized abdominal pain. Hematochezia. COMPARISON STUDY: Abdominal CT dated 04/02/2021. TECHNIQUE: Following the IV administration of 93 cc of Optiray 320, CT scan of the abdomen and pelvi s is performed from the lung bases to the proximal femora. Images are reviewed in the axial, sagittal , and coronal planes. IV contrast was administered without complication. Oral contrast was utilized. A dose lowering technique was utilized adhering to the principles of ALARA. CT DOSE: 1005.95 mGy.cm FINDINGS: Lung bases: The heart is normal in size and without pericardial effusion. Emphysematous change is allegra pected. There is bibasilar scarring/atelectasis. No airspace consolidation or pleural effusion is russell ntified. There is a millimeter pleural-based nodule in the right lung base seen on image #22. This is new from 04/02/2021. There is a small hiatal hernia. Liver: The contrast-enhanced liver is normal in size, contour, and attenuation. There is no intrahepa tic biliary ductal dilatation. The hepatic veins and portal veins are patent. Gallbladder: Unremarkable. Spleen: Normal in size and attenuation. Pancreas: Unremarkable. Adrenal glands: Unremarkable. Kidneys: The contrast enhanced kidneys are normal in size and without hydronephrosis. The kidneys enh ance symmetrically. Abdominal vasculature: The abdominal aorta is normal in course and caliber noting moderate to advance d atherosclerotic calcification. Bowel: No bowel obstruction is seen. Enteric contrast reaches the left colon. There is mild colonic d iverticulosis. There is wall thickening with trace pericolonic fluid seen involving the distal descen ding colon which likely represents a mild acute diverticulitis. A focal colitis could appear similar. No fluid collection is seen to suggest abscess. There is a small duodenal diverticulum. The appendix is well-visualized and normal. Peritoneum: There is no intraperitoneal free air or abdominal ascites. Lymphadenopathy: None. Pelvic viscera: The prostate gland is mildly enlarged and heterogeneous. The bladder wall appears thi ckened/trabeculated indicating chronic outlet obstruction. There is evidence of previous hernia repai r in the pelvis. Skeletal structures: The skeletal structures are osteopenic. There is moderate lumbosacral spondylosi s. No lytic or blastic lesions are seen. IMPRESSION: 1. Mild acute diverticulitis versus a focal colitis of the distal descending colon as above. 2. No intraperitoneal free air is identified and there is no fluid collection to indicate abscess. 3. Emphysematous change is suspected and there is a new 8 mm pleural-based nodule in the right lower lobe. Although this could be inflammatory, this is morphologically concerning and a dedicated chest C T is recommended in 1 to 2 months time for reassessment and full evaluation of the thorax. 4. Additional findings as above. ACT 112: Positive. There are findings on this exam that require communication between the performing entity and the patient following Patient Test Result Information Act ([place] Act 112) guidelines. Electronically signed by: Lonnie Moeller M.D. 03/08/2023 12:54 PM
[2023-03-08] MEDS ORDERED: PIPERACILLIN/TAZOBACTAM 4.5 GM (over 30 mins) IV ONE (13:15)
[2023-03-08] MEDS: CYCLOBENZAPRINE HCL 5 MG TAB PO PRN ×2 (13:45→22:07)
[2023-03-08 17:17] LABS: Hematocrit (blood only) 31.1 % (42.0-52.0); Hemoglobin 10.3 g/dl (14.0-18.0)
[2023-03-08] MEDS: PIPERACILLIN/TAZOBACTAM 4.5 GM in DEXTROSE 5% 100 ML IV SCH (17:36)
--- NOTE | 2023-03-08 19:13 | Hospitalist Progress Note ---
Date of Service March 08, 2023 Assessment & Plan (1) Lower gastrointestinal hemorrhage: Plan: 62-year-old male presents with a (lower) GI bleed. Bright red blood per rectum Several episodes as per patient Hemoglobin 12 -> 10.4 - H&H being checked every 6 hrs , Hgb so far above 10 We will follow H&H every 6 hours Blood consent obtained on admission Pt continues to have frequent bloody BM today (03/08) Pt reports daily NSAID use for shoulder pain We will hold meloxicam IV Protonix twice daily N.p.o., IV fluids Possible diverticular bleed has history of diverticulosis Close monitoring telemetry floor GI consulted and CT abd/pelvis obtained - 1. Mild acute diverticulitis versus a focal colitis of the distal descending colon as above. 2. No intraperitoneal free air is identified and there is no fluid collection to indicate abscess. 3. Emphysematous change is suspected and there is a new 8 mm pleural-based nodule in the right lower lobe. Although this could be inflammatory, this is morphologically concerning and a dedicated chest CT is recommended in 1 to 2 months time for reassessment and full evaluation of the thorax. Pt started on IV zosyn Stool studies ordered but because grossly bloody - not tested - will need to rep eat - discussed w/ RN Plan for endoscopy tmrw KAILASH On nortriptyline Tobacco abuse needs counseling DVT prophylax SCDs Disposition - telemetry Full code Admission and Anticipated Discharge Date Admission Date: March 08, 2023 Subjective Pt seen in follow up of GI bleed Continues to have bloody BM about every hours Stool studies sent - per RN - mostly bloody so need to repeat and be sent again to lab Pt is laying in bed in NAD. Reports minimal LLQ pain. No chest pain, no shortness of breath. Able to ambulate to bathroom. CT abd/pelvis ordered and discussed w/ GI. Plan for endoscopy tmrw Pt reports daily NSAID use for shoulder pain Review of Systems Review of Systems: All systems reviewed & are unremarkable except as noted in Subjective Physical Exam Physical Exam: General- WD/WN M in NAD Head- atraumatic Eyes- PERRL, ENT- oropharynx clear Neck- supple, no JVD Lungs- clear to auscultation b/l Heart- regular rhythm; no murmur Abdomen- normal bowel sounds, soft,mild tenderness to palp. at LLQ Extremities- no pretibial edema, no erythema seen, moves extremities Neuro- alert, oriented x 3; PERRL, EOMI; no facial palsy; no dysarthria, answers appropriately, moves extremities Skin- warm & dry Results & Data Results & Data Vital Signs (Past 12 Hours) Vital Signs Temp Pulse Resp BP Pulse Ox O2 Del Method 03/08/23 08:54 36.7 C 87 16 115/73 95 Room Air 03/08/23 08:06 36.8 C 89 18 110/67 99 Room Air Laboratory Results 03/08/23 03/08/23 03/08/23 Range/Units 16:50 10:55 04:20 WBC (4.8-10.8) K/ul RBC (4.70-6.10) M/uL Hgb 10.3 L 10.4 L (14.0-18.0) g/dl POC Hgb (14.0-18.0) g/dl Hct 31.1 L 31.0 L (42.0-52.0) % POC Hct (42-52) % MCV (80.0-100.0) fL MCH (25.0-34.0) pg MCHC (32.0-36.0) g/dL RDW Std Deviation (36.4-46.3) fL RDW Coeff of Reji (11.5-14.5) % Plt Count (130-400) K/uL MPV (9.4-12.4) fL Immature Gran % (Auto) % Neut % (Auto) % Lymph % (Auto) % Lares % (Auto) % Eos % (Auto) % Baso % (Auto) % Neut # (Auto) (1.40-6.50) K/uL Lymph # (Auto) (1.2-3.4) K/uL Lares # (Auto) (0.11-0.59) K/uL Eos # (Auto) (0-0.50) K/uL Baso # (Auto) (0-0.2) K/uL Immature Gran # (Auto) (0.01-0.20) K/uL PT (9.0-12.0) Seconds INR (0.9-1.1) APTT (21.0-31.0) Seconds PTT Ratio POC Sodium (135-144) mmol/L Sodium 140 (136-145) mmol/L POC Potassium (3.3-5.0) mmol/L Potassium 4.8 (3.5-5.1) mmol/L POC Chloride (101-112) mmol/L Chloride 110 H (98-107) mmol/L Carbon Dioxide 27 (21-32) mmol/L POC Total CO2 (24-31) mmol/L Anion Gap 3 (3-11) POC Anion Gap (16-25) mmol/L POC BUN (7-18) mg/dl BUN 28 H (6-23) mg/dl Creatinine 0.93 (0.6-1.4) mg/dl POC Creatinine (0.6-1.3) mg/dl Est Cr Clr Drug Dosing 82.4 ml/min Est GFR ( Amer) 101.6 ml/min Est GFR (Non-Af Amer) 87.7 ml/min BUN/Creatinine Ratio 30.1 H (10-20) Glucose 90 (70-99(Fasting)) mg/dl POC Glucose (other) (70-99) mg/dl Calcium 9.4 (8.6-10.3) mg/dl POC Ioniz Calcium Kannan (1.12-1.32) mmol/l Magnesium 2.1 (1.7-2.4) mg/dl Total Bilirubin (0.2-1.0) mg/dl AST (13-39) U/L ALT (7-52) U/L Alkaline Phosphatase (34-104) U/L Troponin I High Sens (0-20) pg/ml Total Protein (6.0-8.3) gm/dl Albumin (3.4-5.0) gm/dl Globulin (2.5-4.0) gm/dl Albumin/Globulin Ratio (0.9-2) POC Stool Occult Blood (Negative) SARS-CoV-2, RNA, NAAT (NEGATIVE) Blood Type Antibody Screen 03/08/23 03/07/23 03/07/23 Range/Units 04:20 23:42 23:11 WBC 9.81 (4.8-10.8) K/ul RBC 3.83 L (4.70-6.10) M/uL Hgb 10.5 L (14.0-18.0) g/dl POC Hgb (14.0-18.0) g/dl Hct 32.2 L (42.0-52.0) % POC Hct (42-52) % MCV 84.1 (80.0-100.0) fL MCH 27.4 (25.0-34.0) pg MCHC 32.6 (32.0-36.0) g/dL RDW Std Deviation 42.5 (36.4-46.3) fL RDW Coeff of Reji 13.9 (11.5-14.5) % Plt Count 357 (130-400) K/uL MPV 8.3 L (9.4-12.4) fL Immature Gran % (Auto) 0.3 % Neut % (Auto) 59.7 % Lymph % (Auto) 29.0 % Lares % (Auto) 7.5 % Eos % (Auto) 3.0 % Baso % (Auto) 0.5 % Neut # (Auto) 5.86 (1.40-6.50) K/uL Lymph # (Auto) 2.84 (1.2-3.4) K/uL Lares # (Auto) 0.74 H (0.11-0.59) K/uL Eos # (Auto) 0.29 (0-0.50) K/uL Baso # (Auto) 0.05 (0-0.2) K/uL Immature Gran # (Auto) 0.03 (0.01-0.20) K/uL PT (9.0-12.0) Seconds INR (0.9-1.1) APTT (21.0-31.0) Seconds PTT Ratio POC Sodium (135-144) mmol/L Sodium (136-145) mmol/L POC Potassium (3.3-5.0) mmol/L Potassium (3.5-5.1) mmol/L POC Chloride (101-112) mmol/L Chloride (98-107) mmol/L Carbon Dioxide (21-32) mmol/L POC Total CO2 (24-31) mmol/L Anion Gap (3-11) POC Anion Gap (16-25) mmol/L POC BUN (7-18) mg/dl BUN (6-23) mg/dl Creatinine (0.6-1.4) mg/dl POC Creatinine (0.6-1.3) mg/dl Est Cr Clr Drug Dosing ml/min Est GFR ( Amer) ml/min Est GFR (Non-Af Amer) ml/min BUN/Creatinine Ratio (10-20) Glucose (70-99(Fasting)) mg/dl POC Glucose (other) (70-99) mg/dl Calcium (8.6-10.3) mg/dl POC Ioniz Calcium Kannan (1.12-1.32) mmol/l Magnesium (1.7-2.4) mg/dl Total Bilirubin (0.2-1.0) mg/dl AST (13-39) U/L ALT (7-52) U/L Alkaline Phosphatase (34-104) U/L Troponin I High Sens (0-20) pg/ml Total Protein (6.0-8.3) gm/dl Albumin (3.4-5.0) gm/dl Globulin (2.5-4.0) gm/dl Albumin/Globulin Ratio (0.9-2) POC Stool Occult Blood (Negative) SARS-CoV-2, RNA, NAAT NEGATIVE (NEGATIVE) Blood Type O Positive Antibody Screen NEGATIVE 03/07/23 03/07/23 03/07/23 Range/Units 22:35 22:15 22:00 WBC (4.8-10.8) K/ul RBC (4.70-6.10) M/uL Hgb (14.0-18.0) g/dl POC Hgb 12.6 L (14.0-18.0) g/dl Hct (42.0-52.0) % POC Hct 37 L (42-52) % MCV (80.0-100.0) fL MCH (25.0-34.0) pg MCHC (32.0-36.0) g/dL RDW Std Deviation (36.4-46.3) fL RDW Coeff of Reji (11.5-14.5) % Plt Count (130-400) K/uL MPV (9.4-12.4) fL Immature Gran % (Auto) % Neut % (Auto) % Lymph % (Auto) % Lares % (Auto) % Eos % (Auto) % Baso % (Auto) % Neut # (Auto) (1.40-6.50) K/uL Lymph # (Auto) (1.2-3.4) K/uL Lares # (Auto) (0.11-0.59) K/uL Eos # (Auto) (0-0.50) K/uL Baso # (Auto) (0-0.2) K/uL Immature Gran # (Auto) (0.01-0.20) K/uL PT (9.0-12.0) Seconds INR (0.9-1.1) APTT (21.0-31.0) Seconds PTT Ratio POC Sodium 142 (135-144) mmol/L Sodium 140 (136-145) mmol/L POC Potassium 4.1 (3.3-5.0) mmol/L Potassium 4.1 (3.5-5.1) mmol/L POC Chloride 106 (101-112) mmol/L Chloride 108 H (98-107) mmol/L Carbon Dioxide 27 (21-32) mmol/L POC Total CO2 25 (24-31) mmol/L Anion Gap 5 (3-11) POC Anion Gap 15.0 L (16-25) mmol/L POC BUN 27 H (7-18) mg/dl BUN 27 H (6-23) mg/dl Creatinine 1.14 (0.6-1.4) mg/dl POC Creatinine 1.2 (0.6-1.3) mg/dl Est Cr Clr Drug Dosing 67.2 ml/min Est GFR ( Amer) 79.4 ml/min Est GFR (Non-Af Amer) 68.5 ml/min BUN/Creatinine Ratio 23.7 H (10-20) Glucose 99 (70-99(Fasting)) mg/dl POC Glucose (other) 99 (70-99) mg/dl Calcium 10.0 (8.6-10.3) mg/dl POC Ioniz Calcium Kannan 1.34 H (1.12-1.32) mmol/l Magnesium (1.7-2.4) mg/dl Total Bilirubin 0.3 (0.2-1.0) mg/dl AST 17 (13-39) U/L ALT 12 (7-52) U/L Alkaline Phosphatase 96 (34-104) U/L Troponin I High Sens < 2.3 (0-20) pg/ml Total Protein 7.3 (6.0-8.3) gm/dl Albumin 4.2 (3.4-5.0) gm/dl Globulin 3.1 (2.5-4.0) gm/dl Albumin/Globulin Ratio 1.4 (0.9-2) POC Stool Occult Blood Positive A (Negative) SARS-CoV-2, RNA, NAAT (NEGATIVE) Blood Type Antibody Screen 03/07/23 03/07/23 Range/Units 22:00 22:00 WBC 10.92 H (4.8-10.8) K/ul RBC 4.28 L (4.70-6.10) M/uL Hgb 12.0 L (14.0-18.0) g/dl POC Hgb (14.0-18.0) g/dl Hct 35.9 L (42.0-52.0) % POC Hct (42-52) % MCV 83.9 (80.0-100.0) fL MCH 28.0 (25.0-34.0) pg MCHC 33.4 (32.0-36.0) g/dL RDW Std Deviation 42.3 (36.4-46.3) fL RDW Coeff of Reji 13.8 (11.5-14.5) % Plt Count 402 H (130-400) K/uL MPV 8.2 L (9.4-12.4) fL Immature Gran % (Auto) % Neut % (Auto) % Lymph % (Auto) % Lares % (Auto) % Eos % (Auto) % Baso % (Auto) % Neut # (Auto) (1.40-6.50) K/uL Lymph # (Auto) (1.2-3.4) K/uL Lares # (Auto) (0.11-0.59) K/uL Eos # (Auto) (0-0.50) K/uL Baso # (Auto) (0-0.2) K/uL Immature Gran # (Auto) (0.01-0.20) K/uL PT 10.7 (9.0-12.0) Seconds INR 1.0 (0.9-1.1) APTT 27.3 (21.0-31.0) Seconds PTT Ratio 1.0 POC Sodium (135-144) mmol/L Sodium (136-145) mmol/L POC Potassium (3.3-5.0) mmol/L Potassium (3.5-5.1) mmol/L POC Chloride (101-112) mmol/L Chloride (98-107) mmol/L Carbon Dioxide (21-32) mmol/L POC Total CO2 (24-31) mmol/L Anion Gap (3-11) POC Anion Gap (16-25) mmol/L POC BUN (7-18) mg/dl BUN (6-23) mg/dl Creatinine (0.6-1.4) mg/dl POC Creatinine (0.6-1.3) mg/dl Est Cr Clr Drug Dosing ml/min Est GFR ( Amer) ml/min Est GFR (Non-Af Amer) ml/min BUN/Creatinine Ratio (10-20) Glucose (70-99(Fasting)) mg/dl POC Glucose (other) (70-99) mg/dl Calcium (8.6-10.3) mg/dl POC Ioniz Calcium Kannan (1.12-1.32) mmol/l Magnesium (1.7-2.4) mg/dl Total Bilirubin (0.2-1.0) mg/dl AST (13-39) U/L ALT (7-52) U/L Alkaline Phosphatase (34-104) U/L Troponin I High Sens (0-20) pg/ml Total Protein (6.0-8.3) gm/dl Albumin (3.4-5.0) gm/dl Globulin (2.5-4.0) gm/dl Albumin/Globulin Ratio (0.9-2) POC Stool Occult Blood (Negative) SARS-CoV-2, RNA, NAAT (NEGATIVE) Blood Type Antibody Screen Medications Administered Current Inpatient Medications Acetaminophen (Acetaminophen 325 Mg Tab) 650 mg PO Q4H PRN PRN Reason: Pain or Fever Stop: 04/07/23 02:20 Cyclobenzaprine HCl (Cyclobenzaprine Hcl 5 Mg Tab) 5 mg PO TID PRN PRN Reason: Muscle Spasm Stop: 04/07/23 02:20 Last Admin: 03/08/23 13:45 Dose: 5 mg Sodium Chloride (Nss 1000ml) 1,000 mls @ 100 mls/hr IV .Q10H FIDEL Stop: 04/07/23 02:20 Last Admin: 03/08/23 16:42 Dose: 100 mls/hr Pantoprazole Sodium 40 mg/ (Syringe) 10 mls @ 5 mls/min IV BID FIDEL Stop: 04/07/23 08:59 Last Admin: 03/08/23 09:07 Dose: 5 mls/min Piperacillin Sod/Tazobactam (Sod 4.5 gm/ Dextrose) 120 mls @ 30 mls/hr IV Q8H FIDEL; Protocol Stop: 03/18/23 17:59 Last Admin: 03/08/23 17:36 Dose: 30 mls/hr Nitroglycerin (Nitroglycerin Sl 0.4 Mg/Tab Tab) 0.4 mg SL Q5M PRN PRN Reason: Chest Pain Stop: 04/07/23 02:20 Nortriptyline HCl (Nortriptyline Hcl 10 Mg Cap) 10 mg PO HS [facility] Stop: 04/07/23 20:59
[2023-03-08] MEDS: NORTRIPTYLINE HCL 10 MG CAP PO SCH (21:09)
[2023-03-08 23:10] LABS: Hematocrit (blood only) 30.8 % (42.0-52.0); Hemoglobin 10.4 g/dl (14.0-18.0)
[2023-03-09] MEDS: SODIUM CHLORIDE 0.9% 1000ML 1,000 ML IV SCH ×2 (01:18→11:41)
[2023-03-09] MEDS: PIPERACILLIN/TAZOBACTAM 4.5 GM in DEXTROSE 5% 100 ML IV SCH ×3 (01:19→17:56)
--- NOTE | 2023-03-09 07:15 | Hospitalist Progress Note ---
Date of Service March 09, 2023 Assessment & Plan (1) Lower gastrointestinal hemorrhage: Plan: 62-year-old male presents with a (lower) GI bleed. Bright red blood per rectum Several episodes as per patient Possible diverticular bleed has history of diverticulosis Acute blood loss anemia secondary to GI bleed Hemoglobin 12 -> 10.4 - H&H being checked every 6 hrs , Hgb been above 10, this AM 9.2 Continue to monitor H&H Blood consent obtained on admission Pt continued to have frequent bloody BMs yesterday (03/08) but now stopped Pt reported daily NSAID use for shoulder pain We will hold meloxicam IV Protonix twice daily GI consulted and CT abd/pelvis obtained - 1. Mild acute diverticulitis versus a focal colitis of the distal descending colon as above. 2. No intraperitoneal free air is identified and there is no fluid collection to indicate abscess. 3. Emphysematous change is suspected and there is a new 8 mm pleural-based nodule in the right lower lobe. Although this could be inflammatory, this is morphologically concerning and a dedicated chest CT is recommended in 1 to 2 months time for reassessment and full evaluation of the thorax. Pt started on IV zosyn Stool studies ordered but because grossly bloody - not tested - will need to repeat - discussed w/ RN Now s/p EGD today (03/09/23), colonoscopy contraindicated d/t diverticulitis on CT, plan for colonoscopy as outpt Findings: The examined esophagus was normal. The entire examined stomach was normal. The duodenal bulb and second portion of the duodenum were normal. Impression: - Normal esophagus. - Normal stomach. - Normal duodenal bulb and second portion of the duodenum. - No specimens collected. Recommendation: - [facility] care. - Advance diet as tolerated. - Colonoscopy as OP. KAILASH On nortriptyline Tobacco abuse - needs counseling DVT prophylax SCDs Disposition - telemetry Full code Admission and Anticipated Discharge Date Admission Date: March 08, 2023 Subjective Pt seen in follow up of GI bleed Says last bloody BM overnight and since then no more bloody stools. Pt is laying in bed in NAD. Reports minimal LLQ pain. No chest pain, no shortness of breath. Able to ambulate to bathroom. Now s/p EGD this AM - which was unremarkable. Review of Systems Review of Systems: All systems reviewed & are unremarkable except as noted in Subjective Physical Exam Physical Exam: General- WD/WN M in NAD Head- atraumatic Eyes- PERRL, ENT- oropharynx clear Neck- supple, no JVD Lungs- clear to auscultation b/l Heart- regular rhythm; no murmur Abdomen- normal bowel sounds, soft,mild tenderness to palp. at LLQ Extremities- no pretibial edema, no erythema seen, moves extremities Neuro- alert, oriented x 3; PERRL, EOMI; no facial palsy; no dysarthria, answers appropriately, moves extremities Skin- warm & dry Results & Data Results & Data Vital Signs (Past 12 Hours) Vital Signs Temp Pulse Pulse Resp BP Pulse Ox O2 Del Method 03/09/23 02:58 36.5 C 73 20 96/60 L 97 Room Air 03/08/23 23:48 75 03/08/23 23:48 36.6 C 74 19 116/71 97 Room Air 03/08/23 20:00 Room Air 03/08/23 19:43 36.6 C 76 22 129/77 97 Room Air Laboratory Results 03/08/23 03/08/23 03/08/23 Range/Units 22:47 16:50 10:55 Hgb 10.4 L 10.3 L 10.4 L (14.0-18.0) g/dl Hct 30.8 L 31.1 L 31.0 L (42.0-52.0) % Medications Administered Current Inpatient Medications Acetaminophen (Acetaminophen 325 Mg Tab) 650 mg PO Q4H PRN PRN Reason: Pain or Fever Stop: 04/07/23 02:20 Last Admin: 03/08/23 19:49 Dose: 650 mg Cyclobenzaprine HCl (Cyclobenzaprine Hcl 5 Mg Tab) 5 mg PO TID PRN PRN Reason: Muscle Spasm Stop: 04/07/23 02:20 Last Admin: 03/08/23 22:07 Dose: 5 mg Sodium Chloride (Nss 1000ml) 1,000 mls @ 100 mls/hr IV .Q10H FIDEL Stop: 04/07/23 02:20 Last Infusion: 03/09/23 05:37 Dose: 100 mls/hr Pantoprazole Sodium 40 mg/ (Syringe) 10 mls @ 5 mls/min IV BID FIDEL Stop: 04/07/23 08:59 Last Admin: 03/08/23 21:09 Dose: 5 mls/min Piperacillin Sod/Tazobactam (Sod 4.5 gm/ Dextrose) 120 mls @ 30 mls/hr IV Q8H FIDEL; Protocol Stop: 03/18/23 17:59 Last Infusion: 03/09/23 05:37 Dose: Infused Nitroglycerin (Nitroglycerin Sl 0.4 Mg/Tab Tab) 0.4 mg SL Q5M PRN PRN Reason: Chest Pain Stop: 04/07/23 02:20 Nortriptyline HCl (Nortriptyline Hcl 10 Mg Cap) 10 mg PO HS FIDEL Stop: 04/07/23 20:59 Last Admin: 03/08/23 21:09 Dose: 10 mg
[2023-03-09 07:53] LABS: Hematocrit (blood only) 27.5 % (42.0-52.0); Hemoglobin 9.2 g/dl (14.0-18.0)
[2023-03-09 08:07] LABS: Calcium 8.9 mg/dl (8.6-10.3); Creatinine Clr Calc Pharmacy 76.6 ml/min; Est GFR (African American) 93.1 ml/min; Est GFR (Non-African American) 80.3 ml/min; Magnesium 1.9 mg/dl (1.7-2.4); Phosphorus 2.8 mg/dl (2.5-4.9); Potassium 4.3 mmol/L (3.5-5.1)
--- NOTE | 2023-03-09 08:33 | Anesthesiology Consultation ---
Date of Service March 09, 2023 Assessment & Plan (1) Encounter for pre-operative examination: Chart Review Chart Review: Acceptable Risk for Surgery and Patient NOT seen in Pre Admission Testing Consults Requested none History Surgery Operation Date: 03/09/23 16:30 Proposed Procedures p Colonoscopy EGD Dr. Martinez - Diomedes Martinez MD Height/Weight Height: 5 ft 9 in Weight: 77 kg Allergies Allergy/AdvReac Type Severity Reaction Status Date / Time No Known Allergies Allergy Verified 03/09/23 08:05 Medications Home Medications Medication Instructions Recorded Confirmed Last Taken nortriptyline 10 mg capsule 10 mg PO HS 04/02/21 03/07/23 03/06/23 omeprazole 20 mg capsule,delayed 20 mg PO DAILYBB 04/02/21 03/07/23 03/07/23 release acetaminophen 325 mg tablet 650 mg PO Q4H PRN pain #30 tabs 04/04/21 03/07/23 Unknown cyclobenzaprine 5 mg tablet 5 mg PO UD PRN Muscle Spasm 03/07/23 03/07/23 03/07/23 meloxicam 15 mg tablet 15 mg PO QAM 03/07/23 03/07/23 03/07/23 Active Medications Generic Name Dose Route Start Last Admin Trade Name Freq PRN Reason Stop Dose Admin Acetaminophen 650 mg 03/08/23 02:21 03/08/23 19:49 Acetaminophen 325 Mg Tab PO 04/07/23 02:20 650 mg Q4H PRN Administration Pain or Fever Cyclobenzaprine HCl 5 mg 03/08/23 06:29 03/08/23 22:07 Cyclobenzaprine Hcl 5 Mg Tab PO 04/07/23 02:20 5 mg TID PRN Administration Muscle Spasm Sodium Chloride 1,000 mls @ 100 mls/hr 03/08/23 02:21 03/09/23 05:37 Nss 1000ml IV 04/07/23 02:20 100 mls/hr .Q10H FIDEL Infusion Pantoprazole Sodium 40 mg/ 10 mls @ 5 mls/min 03/08/23 09:00 03/08/23 21:09 Syringe IV 04/07/23 08:59 5 mls/min BID FIDEL Administration Piperacillin Sod/Tazobactam 120 mls @ 30 mls/hr 03/08/23 18:00 03/09/23 05:37 Sod 4.5 gm/ Dextrose IV 03/18/23 17:59 Infused Q8H FIDEL Infusion Protocol Nortriptyline HCl 10 mg 03/08/23 21:00 03/08/23 21:09 Nortriptyline Hcl 10 Mg Cap PO 04/07/23 20:59 10 mg HS FIDEL Administration NPO Date Last Intake of Fluids: 03/08/23 Time Last Intake of Fluids: 22:30 Date Last Intake of Solids: 03/07/23 Time Last Intake of Solids: 18:00 Past Medical History Medical History Acute colitis Acute GI bleeding Anemia KAILASH (generalized anxiety disorder) Gastrointestinal bleeding, lower Generalized osteoarthritis Hepatitis B carrier No pertinent past medical history Tobacco use disorder Past Family History Family History Grandfather Lung cancer Grandmother (Maternal) Diabetes Past Surgical History Surgical History Hx of cataract surgery Hx of inguinal hernia surgery Social History Smoking Status: Current every day smoker tobacco type: cigarettes Smoking cigarettes per day: 45 Do You Dip or Chew Tobacco: No Hx Alcohol Use: No Alcohol type: hard liquor alcohol intake frequency: holidays/special occasions only Hx Substance Use: No substance use type: does not use Last Used Substance: Days (ago) Last Used Substance Other:: 1 Physical Exam Vital Signs Last Vital Signs Temp 97.9 F 03/09/23 08:07 Pulse 84 03/09/23 08:07 Resp 16 03/09/23 08:07 BP 124/75 03/09/23 08:07 Pulse Ox 96 03/09/23 08:07 O2 Del Method Room Air 03/09/23 08:07 Testing Laboratory Results 03/09/23 07:11 03/09/23 07:11 PT 10.7 Seconds (9.0-12.0) 03/07/23 22:00 INR 1.0 (0.9-1.1) 03/07/23 22:00 APTT 27.3 Seconds (21.0-31.0) 03/07/23 22:00 Blood Type O Positive 03/07/23 23:11 Antibody Screen NEGATIVE 03/07/23 23:11
--- NOTE | 2023-03-09 08:33 | History & Physical Bridge Note ---
Date of Service March 09, 2023 History & Physical Bridge Note I have examined the patient, reviewed the History & Physical and in the interval since the performance of the History & Physical I have noted the following changes of clinical significance: no changes noted EGD Patient was explained in detail regarding risks, benefits, limitations and alternatives of the above endoscopic procedure. Risks of intravenous sedation used for procedure were also explained. Risks include, but not limited to perforation, bleeding, infection, respiratory distress, cardiac arrest and . Patient is also aware about the possibility of missed lesion. Patient's questions were answered. The patient verbalized understanding the information and agreed to undergo the procedure.
[2023-03-09] MEDS ORDERED: LIDOCAINE 2% 2 ML VIAL/AMP(20MG/ML) INFIL ONE (09:13)
[2023-03-09] MEDS ORDERED: PROPOFOL IV EMULSION 10 MG/ML 20 ML VIAL IV ONE (09:13)
--- NOTE | 2023-03-09 09:17 | GI REPORT ---
Patient Name: Doug Mills Procedure Date: 03/09/2023 9:03 AM Date of : 1960 Admit Type: Inpatient Age: 62 Gender: Male Attending MD: Diomedes Martinez MD, Procedure: Upper GI endoscopy Providers: Diomedes Martinez MD Referring MD: Wilmer Lea Md Indications: Hematochezia Medicines: Propofol per Anesthesia Complications: No immediate complications. Estimated Blood Loss: Estimated blood loss: none. Procedure: Pre-Anesthesia Assessment: - Prior to the procedure, a History and Physical was performed, and patient medications, allergies and sensitivities were reviewed. The patient's tolerance of previous anesthesia was reviewed. - The risks and benefits of the procedure and the sedation options and risks were discussed with the patient. All questions were answered and informed consent was obtained. - Patient identification and proposed procedure were verified prior to the procedure by the physician and the nurse. The procedure was verified in the procedure room. - Pre-procedure physical examination revealed no contraindications to sedation. After obtaining informed consent, the endoscope was passed under direct vision. Throughout the procedure, the patient's blood pressure, pulse, and oxygen saturations were monitored continuously. The Endoscope was introduced through the mouth, and advanced to the second part of duodenum. The upper GI endoscopy was accomplished without difficulty. The patient tolerated the procedure well. Findings: The examined esophagus was normal. The entire examined stomach was normal. The duodenal bulb and second portion of the duodenum were normal. Impression: - Normal esophagus. - Normal stomach. - Normal duodenal bulb and second portion of the duodenum. - No specimens collected. Recommendation: - Return patient to [facility] for ongoing care. - Advance diet as tolerated. - Colonoscopy as OP. - Recall GI if needed. Diomedes Martinez MD 03/09/2023 9:16:39 AM This report has been signed electronically. Note Initiated On: 03/09/2023 9:03 AM Number of Addenda: 0 I attest to the content of the Intraoperative Record and orders documented therein, exceptions below {[id number]}
--- NOTE | 2023-03-09 09:51 | Anesthesiology Progress Note ---
Date of Service March 09, 2023 Anesthesia Post Procedure Vital Signs Vital Signs: Temp Pulse Pulse Resp BP Pulse Ox O2 Del Method 03/09/23 09:46 70 16 112/72 97 Room Air 03/09/23 09:30 72 16 115/65 97 Room Air 03/09/23 09:15 75 16 96/54 L 97 Room Air 03/09/23 07:00 73 03/09/23 08:07 97.9 F 84 16 124/75 96 Room Air 03/09/23 07:52 97.8 F 83 20 121/69 97 Room Air 03/09/23 02:58 97.7 F 73 20 96/60 L 97 Room Air 03/08/23 23:48 75 03/08/23 23:48 97.9 F 74 19 116/71 97 Room Air 03/08/23 20:00 Room Air 03/08/23 19:43 97.9 F 76 22 129/77 97 Room Air Transfer of Care Handoff Completed per policy Notes Mental Status: alert / awake / arousable and participated in evaluation Patient Amnestic to Procedure: Yes Nausea / Vomiting: adequately controlled Pain: adequately controlled Airway Patency, RR, SpO2: stable & adequate BP & HR: stable & adequate Hydration State: stable & adequate Anesthetic Complications: no major complications apparent and Pt Satisfied with anesthetic care
[2023-03-09] MEDS: CYCLOBENZAPRINE HCL 5 MG TAB PO PRN ×2 (10:47→17:57)
[2023-03-09] MEDS: PANTOprazole 40 MG in SYRINGE 0 ML IV SCH ×2 (10:47→21:55)
[2023-03-09 15:52] LABS: Hematocrit (blood only) 29.9 % (42.0-52.0); Hemoglobin 9.9 g/dl (14.0-18.0)
[2023-03-09] MEDS: NORTRIPTYLINE HCL 10 MG CAP PO SCH (21:54)
[2023-03-10] MEDS: CYCLOBENZAPRINE HCL 5 MG TAB PO PRN ×3 (02:17→17:00)
[2023-03-10] MEDS: PIPERACILLIN/TAZOBACTAM 4.5 GM in DEXTROSE 5% 100 ML IV SCH ×3 (02:17→17:42)
--- NOTE | 2023-03-10 07:23 | Hospitalist Progress Note ---
Date of Service March 10, 2023 Assessment & Plan (1) Lower gastrointestinal hemorrhage: Plan: 62-year-old male presents with a (lower) GI bleed. Bright red blood per rectum Several episodes as per patient Possible diverticular bleed has history of diverticulosis Acute blood loss anemia secondary to GI bleed Hemoglobin 12 -> 10s -> 9.2 -> 8.8 Continue to monitor H&H Blood consent obtained on admission Pt continued to have frequent bloody BMs on (03/08) but now stopped Pt reported daily NSAID use for shoulder pain We will hold meloxicam IV Protonix twice daily GI consulted and CT abd/pelvis obtained - 1. Mild acute diverticulitis versus a focal colitis of the distal descending colon as above. 2. No intraperitoneal free air is identified and there is no fluid collection to indicate abscess. 3. Emphysematous change is suspected and there is a new 8 mm pleural-based nodule in the right lower lobe. Although this could be inflammatory, this is morphologically concerning and a dedicated chest CT is recommended in 1 to 2 months time for reassessment and full evaluation of the thorax. Pt started on IV zosyn Stool studies ordered but because grossly bloody - not tested - will need to repeat - discussed w/ RN 03/10 - Will advance diet to low fiber today, as he is tolerating clear liquid diet Now s/p EGD today (03/09/23), colonoscopy contraindicated d/t diverticulitis on CT, plan for colonoscopy as outpt Findings: The examined esophagus was normal. The entire examined stomach was normal. The duodenal bulb and second portion of the duodenum were normal. Impression: - Normal esophagus. - Normal stomach. - Normal duodenal bulb and second portion of the duodenum. - No specimens collected. Recommendation: - [facility]. - Advance diet as tolerated. - Colonoscopy as OP. KAILASH On nortriptyline Tobacco abuse - needs counseling DVT prophylax SCDs Disposition - telemetry Full code Admission and Anticipated Discharge Date Admission Date: March 08, 2023 Subjective Pt seen in follow up of GI bleed Says that gross bloody BMs have stopped now has some dark stools. Pt is sitting up in bed in NAD. He also ambulates in his room. Reports minimal LLQ discomfort. No chest pain, no shortness of breath. He is s/p EGD - which was unremarkable. Tolerating clear liquids, will advance diet now. Review of Systems 2 Review of Systems: All systems reviewed & are unremarkable except as noted in Subjective Physical Exam Physical Exam: General- WD/WN M in NAD Head- atraumatic Eyes- PERRL, ENT- oropharynx clear Neck- supple, no JVD Lungs- clear to auscultation b/l Heart- regular rhythm; no murmur Abdomen- normal bowel sounds, soft,mild tenderness to palp. at LLQ Extremities- no pretibial edema, no erythema seen, moves extremities Neuro- alert, oriented x 3; PERRL, EOMI; no facial palsy; no dysarthria, answers appropriately, moves extremities Skin- warm & dry Results & Data Results & Data Vital Signs (Past 12 Hours) Vital Signs Temp Pulse Pulse Resp BP BP Pulse Ox 03/10/23 02:19 36.4 C L 78 18 130/84 98 03/09/23 23:16 36.6 C 73 18 101/61 97 03/09/23 22:50 80 03/09/23 19:57 36.7 C 95 H 20 129/81 97 O2 Del Method 03/10/23 02:19 Room Air 03/09/23 23:16 Room Air 03/09/23 22:50 03/09/23 19:57 Room Air Laboratory Results 03/10/23 03/10/23 03/09/23 Range/Units 06:24 06:24 15:24 Hgb 8.8 L 9.9 L (14.0-18.0) g/dl Hct 26.4 L 29.9 L (42.0-52.0) % Sodium 139 (136-145) mmol/L Potassium 4.0 (3.5-5.1) mmol/L Chloride 108 H (98-107) mmol/L Carbon Dioxide 27 (21-32) mmol/L Anion Gap 4 (3-11) BUN 12 (6-23) mg/dl Creatinine 1.05 (0.6-1.4) mg/dl Est Cr Clr Drug Dosing 72.9 ml/min Est GFR ( Amer) 87.7 ml/min Est GFR (Non-Af Amer) 75.7 ml/min BUN/Creatinine Ratio 11.4 (10-20) Glucose 99 (70-99(Fasting)) mg/dl Calcium 9.3 (8.6-10.3) mg/dl Phosphorus 2.7 (2.5-4.9) mg/dl Magnesium 2.0 (1.7-2.4) mg/dl Medications Administered Current Inpatient Medications Acetaminophen (Acetaminophen 325 Mg Tab) 650 mg PO Q4H PRN PRN Reason: Pain or Fever Stop: 04/07/23 02:20 Last Admin: 03/08/23 19:49 Dose: 650 mg Cyclobenzaprine HCl (Cyclobenzaprine Hcl 5 Mg Tab) 5 mg PO TID PRN PRN Reason: Muscle Spasm Stop: 04/07/23 02:20 Last Admin: 03/10/23 02:17 Dose: 5 mg Pantoprazole Sodium 40 mg/ (Syringe) 10 mls @ 5 mls/min IV BID FIDEL Stop: 04/07/23 08:59 Last Admin: 03/09/23 21:55 Dose: 5 mls/min Piperacillin Sod/Tazobactam (Sod 4.5 gm/ Dextrose) 120 mls @ 30 mls/hr IV Q8H FIDEL; Protocol Stop: 03/18/23 17:59 Last Infusion: 03/10/23 06:23 Dose: Infused Nitroglycerin (Nitroglycerin Sl 0.4 Mg/Tab Tab) 0.4 mg SL Q5M PRN PRN Reason: Chest Pain Stop: 04/07/23 02:20 Nortriptyline HCl (Nortriptyline Hcl 10 Mg Cap) 10 mg PO HS FIDEL Stop: 04/07/23 20:59 Last Admin: 03/09/23 21:54 Dose: 10 mg
[2023-03-10 07:26] LABS: Hematocrit (blood only) 26.4 % (42.0-52.0); Hemoglobin 8.8 g/dl (14.0-18.0)
[2023-03-10] MEDS: PANTOprazole 40 MG in SYRINGE 0 ML IV SCH ×2 (08:15→20:26)
[2023-03-10 10:01] LABS: BUN Creatinine Ratio 11.4 (10-20); Calcium 9.3 mg/dl (8.6-10.3); Creatinine Clr Calc Pharmacy 72.9 ml/min; Est GFR (African American) 87.7 ml/min; Est GFR (Non-African American) 75.7 ml/min; Phosphorus 2.7 mg/dl (2.5-4.9)
[2023-03-10] MEDS: LIDOCAINE 5% 1 PATCH TD SCH ×2 (13:32)
[2023-03-10 14:16] LABS: Cdiff Toxin B Gene (2yr or >) Positive Cdiff Gene (Neg)
[2023-03-10 14:47] LABS: Adenovirus F 40/41 PCR Not Detected (NotDetected); Astrovirus PCR Not Detected (NotDetected); Campylobacter PCR Not Detected (NotDetected); Cryptosporidium PCR Not Detected (NotDetected); Cyclospora cayetanensis PCR Not Detected (NotDetected); Entamoeba histolytica PCR Not Detected (NotDetected); Enteroaggregative E.coli(EAEC) Not Detected (NotDetected); Enteropathogenic E.coli (EPEC) Not Detected (NotDetected); Enterotoxigenic E.coli (ETEC) Not Detected (NotDetected); Giardia lamblia PCR Not Detected (NotDetected); Norovirus GI/GII PCR Not Detected (NotDetected); Plesiomonas shigelloides PCR Not Detected (NotDetected); Rotavirus A PCR Not Detected (NotDetected); Salmonella PCR Not Detected (NotDetected); Sapovirus PCR Not Detected (NotDetected); Shiga-like Toxin E.coli (STEC) Not Detected (NotDetected); Shigella/Enteroinvasive E.coli Not Detected (NotDetected); Vibrio cholerae PCR Not Detected (NotDetected); Vibrio species PCR Not Detected (NotDetected); Yersinia enterocolitica PCR Not Detected (NotDetected)
[2023-03-10 14:49] LABS: Cdiff Antigen Positive; Cdiff Toxin A+B Negative Cdiff Toxin (Negative)
[2023-03-10 17:59] LABS: Hematocrit (blood only) 28.9 % (42.0-52.0); Hemoglobin 9.6 g/dl (14.0-18.0)
[2023-03-10] MEDS: NORTRIPTYLINE HCL 10 MG CAP PO SCH (20:26)
[2023-03-11] MEDS: PIPERACILLIN/TAZOBACTAM 4.5 GM in DEXTROSE 5% 100 ML IV SCH (02:03)
[2023-03-11] MEDS: CYCLOBENZAPRINE HCL 5 MG TAB PO PRN (05:17)
[2023-03-11 07:19] LABS: Hematocrit (blood only) 27.3 % (42.0-52.0); Hemoglobin 9.2 g/dl (14.0-18.0)
[2023-03-11] MEDS: LIDOCAINE 5% 1 PATCH TD SCH ×2 (08:56)
[2023-03-11] MEDS: PANTOprazole 40 MG in SYRINGE 0 ML IV SCH (08:57)
--- NOTE | 2023-03-11 09:48 | Discharge Summary ---
Date of Service March 11, 2023 Admission HPI Per Admitting Provider This is 62-year-old male with past medical history significant for hyperlipidemia GERD, diverticulosis, generalized osteoarthritis, hepatitis B carrier, tobacco use disorder, KAILASH, marijuana use presents with bright red blood per rectum. Patient states on last Sunday he had few pieces of pizza the next day noticed some blood in the stools for 1 time, and since then having blood per rectum once daily but tonight he had several episodes which prompted him to come to the ER. Has mild abdominal discomfort. Mild nausea. [place] dizzy when he had diarrhea. Denies any headache. No blurred visions. No earache or runny nose. Has some sore throat. No dysphagia. No chest pain or shortness of breath. No fevers no cough. Currently resting comfortably and hemodynamically stable. Admission Exam Per Admitting Provider General- not in acute distress Head- atraumatic Eyes- PERRL, ENT- oropharynx clear Neck- supple, no JVD Lungs- clear to auscultation and percussion Heart- regular rhythm; no murmur, no gallop, no rub appreciated Abdomen- normal bowel sounds, soft,mild diffuse discomfort, no masses or hepatosplenomegaly Extremities- no pretibial edema, no erythema seen Neuro- alert, oriented x 3; PERRL, EOMI; no facial palsy; no dysarthria;Non focal Skin- warm & dry Principal Diagnosis GI bleed Diverticulitis + c. diff gene diarrhea Discharge Exam General- WD/WN M in NAD Head- atraumatic Eyes- PERRL, ENT- oropharynx clear Neck- supple, no JVD Lungs- clear to auscultation b/l Heart- regular rhythm; no murmur Abdomen- normal bowel sounds, soft,mild tenderness to palp. at LLQ Extremities- no pretibial edema, no erythema seen, moves extremities Neuro- alert, oriented x 3; PERRL, EOMI; no facial palsy; no dysarthria, answers appropriately, moves extremities Skin- warm & dry Discharge Data Allergies Allergy/AdvReac Type Severity Reaction Status Date / Time No Known Allergies Allergy Verified 03/09/23 08:05 Consultations 03/07/23 23:36 ED Decision to Admit Stat 03/08/23 08:00 Consult Gastroenterology Routine Procedures Performed Operation Date: 03/09/23 16:30 Actual Procedures p Esophagogastroduodenoscopy - Diomedes Martinez MD Ordered Studies 03/08/23 08:55 CT Abd and Pelvis [CT abd pelvis oral and IV con] Urgent FINDINGS: Lung bases: The heart is normal in size and without pericardial effusion. Emphysematous change is suspected. There is bibasilar scarring/atelectasis. No airspace consolidation or pleural effusion is identified. There is a millimeter pleural-based nodule in the right lung base seen on image #22. This is new from 04/02/2021. There is a small hiatal hernia. Liver: The contrast-enhanced liver is normal in size, contour, and attenuation. There is no intrahepatic biliary ductal dilatation. The hepatic veins and portal veins are patent. Gallbladder: Unremarkable. Spleen: Normal in size and attenuation. Pancreas: Unremarkable. Adrenal glands: Unremarkable. Kidneys: The contrast enhanced kidneys are normal in size and without hydronephrosis. The kidneys enhance symmetrically. Abdominal vasculature: The abdominal aorta is normal in course and caliber noting moderate to advanced atherosclerotic calcification. Bowel: No bowel obstruction is seen. Enteric contrast reaches the left colon. There is mild colonic diverticulosis. There is wall thickening with trace pericolonic fluid seen involving the distal descending colon which likely represents a mild acute diverticulitis. A focal colitis could appear similar. No fluid collection is seen to suggest abscess. There is a small duodenal diverticulum. The appendix is well-visualized and normal. Peritoneum: There is no intraperitoneal free air or abdominal ascites. Lymphadenopathy: None. Pelvic viscera: The prostate gland is mildly enlarged and heterogeneous. The bladder wall appears thickened/trabeculated indicating chronic outlet obstruction. There is evidence of previous hernia repair in the pelvis. Skeletal structures: The skeletal structures are osteopenic. There is moderate lumbosacral spondylosis. No lytic or blastic lesions are seen. IMPRESSION: 1. Mild acute diverticulitis versus a focal colitis of the distal descending colon as above. 2. No intraperitoneal free air is identified and there is no fluid collection to indicate abscess. 3. Emphysematous change is suspected and there is a new 8 mm pleural-based nodule in the right lower lobe. Although this could be inflammatory, this is morphologically concerning and a dedicated chest CT is recommended in 1 to 2 months time for reassessment and full evaluation of the thorax. 4. Additional findings as above. Hospital Course (1) Lower gastrointestinal hemorrhage: Diverticulitis + c. diff gene 62-year-old male presents with a (lower) GI bleed. Bright red blood per rectum Several episodes as per patient Initially felt as possible diverticular bleed, pt has history of diverticulosis Acute blood loss anemia secondary to GI bleed Hemoglobin 12 -> 10s -> 9.2 Continue to monitor H&H Blood consent obtained on admission Pt continued to have frequent bloody BMs on (03/08) but now stopped Pt reported daily NSAID use for shoulder pain We will hold meloxicam IV Protonix twice daily GI consulted and CT abd/pelvis obtained - 1. Mild acute diverticulitis versus a focal colitis of the distal descending colon as above. 2. No intraperitoneal free air is identified and there is no fluid collection to indicate abscess. 3. Emphysematous change is suspected and there is a new 8 mm pleural-based nodule in the right lower lobe. Although this could be inflammatory, this is morphologically concerning and a dedicated chest CT is recommended in 1 to 2 months time for reassessment and full evaluation of the thorax. Pt started on IV zosyn Stool studies ordered but because grossly bloody - not tested - will need to repeat - discussed w/ RN 03/10 - Will advance diet to low fiber today, as he is tolerating clear liquid di et 03/11 Pt tolerating low fiber diet, and bleeding has stopped. However now has watery brown stool. Stool studies positive for c. diff gene (not toxin). Discussed w/ GI - Dr. Ramirez -recommends to cover for diverticulitis for at least 5 days, therefore we will discharge on Augmentin, and also recommend to cover for C. difficile, therefore will discharge on p.o. vancomycin for 14 days. Now s/p EGD today (03/09/23), colonoscopy contraindicated d/t diverticulitis on CT, plan for colonoscopy as outpt Findings: The examined esophagus was normal. The entire examined stomach was normal. The duodenal bulb and second portion of the duodenum were normal. Impression: - Normal esophagus. - Normal stomach. - Normal duodenal bulb and second portion of the duodenum. - No specimens collected. Recommendation: - [facility] to [facility] care. - Advance diet as tolerated. - Colonoscopy as OP. KAILASH On nortriptyline Tobacco abuse - needs counseling Total Time Total Time Spent Total Time Spent (In Minutes): 40 Discharge Plan Discharge Items Patient Disposition: Home - Self-Care Reason For Visit: GI BLEED Discharge Diagnosis: GI bleed Diverticulitis + c. diff gene diarrhea Activity: Per Instructions section Non-emergency contact: Primary Care Provider and Hydrostatic Tester Call non-emergency contact if: you have any medication questions and your symptoms worsen Follow-up/Referrals: Darion Castellano MD [Primary Care Provider] - Diet: Low Fiber Addtl Attending Provider Instructions: Follow up with primary care doctor and baseball glove stuffer. Follow up with primary care doctor within 1 week. You will need colonoscopy in 6-8 weeks. Continue taking omeprazole. Take augmentin for next 4 days. Take vancomycin for 14 days. Continue low fiber diet for now. For pain, recommend adding lidocaine patch - these can often be found over the counter under the name Salonpas. Pending Studies at Discharge: No Stand-Alone Forms: My [facility] RPO, Smoking Cessation Medications and DC Order Prescriptions: New amoxicillin-pot clavulanate 875-125 mg tablet 1 tab PO BID 4 Days Qty: 8 0RF vancomycin 125 mg capsule 125 mg PO QID 14 Days Qty: 56 0RF Continued nortriptyline 10 mg capsule 10 mg PO HS omeprazole 20 mg capsule,delayed release(DR/EC) 20 mg PO DAILYBB acetaminophen 325 mg Tablet 650 mg PO Q4H PRN (Reason: pain) Qty: 30 0RF cyclobenzaprine 5 mg tablet 5 mg PO UD PRN (Reason: Muscle Spasm) Discontinued meloxicam 15 mg tablet 15 mg PO QAM Discharge Orders: Discharge Order (Routine); Ordered 03/11/23 Ordered By: Wilmer Lea Admission Data Admit Date/Time: 03/08/23 01:13 Attending Provider: Wilmer Lea Admit Provider: Cristopher Villalobos Primary Care Provider: Darion Castellano Other Providers: Cristopher Villalobos ; Garrett Brink ; Andrew Rodríguez ; Gloria Medrano ; Sima Seymour ; Holli Garcia ; La Michelle ; Kwesi Heart ; Celestine Peters ; Miky Valentin ; Chikis Alvarez ; Zaid Portillo ; Evelin Davalos ; Rosalba Dickens ; Nicol Muñiz ; Rhea Hernandez ; Diomedes Martinez ; Mickey Toure ; Golden Watts ; Florinda Malloy ; Erika Ramirez Jr
[2023-03-11] MEDS ORDERED: VANCOMYCIN HCL 125 MG/2.5ML SOLN PO SCH (12:00)
[2023-03-11] MEDS ORDERED: RASPBERRY SYRUP 5 ML UDP PO SCH (12:00)
== END 2023-03-11 11:48 | disposition home or self-care (01) | DRG 378 ==
LOC: ED 21:46 → EDINP 03-08 01:13 → 2E 03-08 05:09